=== PATIENT | female | born 1995 | race Caucasian/White ===

== ENCOUNTER 2017-12-05 10:14 | Emergency (ER) | payer OTHER, SELFPAY ==
[2017-12-05 10:19] VITALS: BP 141/90; PULSE 97; RESP 18; TEMP 36.8; O2SAT 99; BMI 27.4
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
[2017-12-05] MEDS: Naproxen 250 MG Tablet 500 MG PO (11:44)
[2017-12-05 11:55] VITALS: PULSE 95; RESP 17; O2SAT 99
== END 2017-12-05 11:58 | disposition home or self-care (01) ==
LOC: ED 10:51
PROVIDERS: Emergency Provider Emergency Medicine; Family Provider Family Medicine; PCP Family Medicine
DX: S16.1XXA Strain of muscle, fascia and tendon at neck level, initial encounter (principal); V49.40XA Driver injured in collision with unspecified motor vehicles in traffic accident, initial encounter; Y93.89 Activity, other specified
CPT/HCPCS: 99283

== ENCOUNTER → 2018-01-28 07:35 | Outpatient (CLI) | payer OTHER, SELFPAY ==
[2018-02-01 11:01] LABS: HPV Reflexed? NOT INDICATED
== END ==
PROVIDERS: Family Provider Family Medicine; PCP Family Medicine; Visit Provider Nurse Practitioner Women's Health
DX: Z12.4 Encounter for screening for malignant neoplasm of cervix (principal)
CPT/HCPCS: 88175; G0145

== ENCOUNTER → 2018-07-23 07:14 | Outpatient (CLI) | payer OTHER, SELFPAY ==
[2018-07-23 07:45] LABS: Erythrocyte Sedimentation Rate 12 mm/hr (0-20)
[2018-07-23 08:23] LABS: AST(SGOT) 12 U/L (15-37); Alanine Aminotransfer ALT/SGPT 20 U/L (13-56); Albumin, Serum 3.5 g/dL (3.2-5.0); Alkaline Phosphatase 111 U/L (45-117); Globulin 4.2 g/dL (2.2-4.2); Protein, Total 7.7 g/dL (6.4-8.2); Rheumatoid Factor < 10.0 IU/mL (<15)
[2018-07-29 09:38] LABS: CCP IgG Antibodies 7 units (0-19); HLA B27 Negative (.)
== END ==
PROVIDERS: Family Provider Family Medicine; PCP Family Medicine
DX: M54.2 Cervicalgia (principal); M25.519 Pain in unspecified shoulder
CPT/HCPCS: 36415; 80076; 81374; 85652; 86140; 86200; 86431

== ENCOUNTER → 2018-08-01 08:24 | Outpatient (CLI) | payer OTHER, SELFPAY ==
--- NOTE | 2018-08-01 08:28 | US_ITS ---
STUDY: ABDOMINAL ULTRASOUND - RIGHT UPPER QUADRANT REASON FOR VISIT: Female, 23 years old. Chronic back pain. TECHNIQUE: Ultrasound evaluation of the right upper quadrant was performed with real-time and static croft-scale imaging. TECHNICAL QUALITY: Adequate. COMPARISON: None. FINDINGS: Liver: The liver measures 15.3 cm. There is normal echogenicity of the liver. The bile ducts are within normal limits. There is hepatic color flow. The direction of portal flow is hepatopetal. There is no demonstrated mass lesion. Gallbladder: Normal distended gallbladder. The gallbladder wall measures 2.4 mm. There is a negative sonographic Angel's sign. There is no pericholecystic fluid. There is a 4 mm gallbladder polyp. Common Bile Duct (C.B.D.): The common bile duct measures 4.4 mm. Pancreas: Normal size of the head, body and tail of the pancreas. There is normal echogenicity of the pancreas. There is no demonstrated pancreatic mass or cyst. Right Kidney: Normal size of the right kidney. The right kidney measures 10.3 cm in length. Normal renal cortex. The right cortex measures 1.6 cm. There is no demonstrated renal mass or cyst. There is no right hydronephrosis. US/Gallbladder IMPRESSION: 4 mm gallbladder polyp. Electronically Signed: Bridget Vallecillo MD at 10:13 EST Tel , Service support ,
== END ==
PROVIDERS: Family Provider Family Medicine; PCP Family Medicine
DX: K81.9 Cholecystitis, unspecified (principal)
CPT/HCPCS: 76705

== ENCOUNTER → 2018-11-05 06:10 | Outpatient (CLI) | payer OTHER, SELFPAY ==
[2018-09-08 10:27] VITALS: BMI 26.5
[2018-11-05 07:23] LABS: Absolute Lymphocyte Count 3.19 X10^3/ul (0.83-4.51); Absolute Neutrophil Count 3.1 X10^3/uL (2.0-7.7); Eosinophil# 0.24 X10^3/uL; Eosinophils% 3.4 % (0-5); Hematocrit 42.4 % (37-47); Hemoglobin 13.9 g/dl (12.0-15.0); Lymphocyte # 3.19 X10^3/ul (4.0); Lymphocyte % 44.6 % (19-41); Mean Corp Hgb Conc 32.8 g/gl (32-36); Mean Corpuscular Volume 91.4 fL (81-99); Mean Platelet Vol. 10.9 fl (6.2-12.0); Monocyte# 0.63 X10^3/uL; Monocyte% 8.8 % (0-10); Neutrophil # 3.09 X10^3/uL (2.7-7.7); Neutrophil % 43.2 % (47-70); Platelet Count 275 K/mm3 (150-450); RBC Distribution Width CV 12.9 % (11.6-14.6); RBC Distribution Width SD 42.6 fl (35.1-43.9); Red Blood Count 4.64 M/mm3 (4.2-5.4); White Blood Count 7.2 K/mm3 (4.4-11.0)
[2018-11-05 07:25] LABS: AST(SGOT) 22 U/L (15-37); Alanine Aminotransfer ALT/SGPT 31 U/L (13-56); Albumin, Serum 3.7 g/dL (3.2-5.0); Alkaline Phosphatase 99 U/L (45-117); BUN 13 mg/dL (7-18); Bilirubin, Direct 0.27 mg/dL (0.00-0.30); Creatinine, Serum 0.79 mg/dL (0.55-1.02); EST Glomerular Filtration Rate 95 mL/min (>60); Est Glom Filt Rate - Afr Amer 115 mL/min (>60); Globulin 3.9 g/dL (2.2-4.2); Glucose 85 mg/dL (74-106); Protein, Total 7.6 g/dL (6.4-8.2); Rheumatoid Factor < 10.0 IU/mL (<15); Thyroid Stim Hormone (TSH) 1.88 uIU/mL (0.358-3.74); Uric Acid 5.2 mg/dL (2.6-6.0)
[2018-11-05 07:55] LABS: Erythrocyte Sedimentation Rate 11 mm/hr (0-20); POSITIVE COUNT NO; POSITIVE DIFFERENTIAL NO; POSITIVE MORPHOLOGY NO
[2018-11-05 08:22] LABS: Vitamin D,25 Hydroxy 14.2 ng/mL (29.95-100.01)
[2018-11-07 11:34] LABS: Thyroid Peroxidase AB 8 IU/mL (0-34)
[2018-11-07 12:43] LABS: ANTINUCLEAR ANTIBODIES DIRECT Negative (Negative)
== END ==
PROVIDERS: Family Provider Family Medicine; PCP Family Medicine; Referring Provider Specialist; Visit Provider Specialist
DX: L50.1 Idiopathic urticaria (principal); E07.9 Disorder of thyroid, unspecified; E55.9 Vitamin D deficiency, unspecified
CPT/HCPCS: 36415; 80076; 82306; 82565; 82947; 83520; 84443; 84520; 84550; 85025; 85652; 86038; 86376; 86431

== ENCOUNTER 2018-11-22 20:04 | Emergency (ER) | payer OTHER, SELFPAY ==
[2018-09-08 10:27] VITALS: BMI 26.5
[2018-11-22 20:05] VITALS: BP 146/77; PULSE 112; RESP 16; TEMP 36.8; O2SAT 100; BMI 27.3
--- NOTE | 2018-11-22 20:50 | ED.DCSUM_ITS ---
- ER Visit Summary Date of Service: 11/22/18 Chief Complaint: Upper lip swelling History of Present Illness: The patient is a 23 F sudden upper lip swelling started at 11 AM this morning, started in the right upper lip, at 3:30 PM progressed to the left upper lip. No tongue swelling no dyspnea. Took Benadryl with no relief. History of similar x2, most recent was September of this year. She follow-up with associate director of development Dr. Lee states was put on allergy pills and blood work was sent. She says is done here unknown results. No family history of hereditary angioedema. Reports stopping NSAIDs a few weeks ago. No ACEI or ARBs. Denies any different foods. She states she did not get seen in the ED for the other events. Records reviewed from September she had blood work apparently for rheumatological workups. There is no C1 esterase inhibitor sent. Physical Examination: General: Alert and oriented ?3, no acute distress HEENT: Normocephalic, atraumatic. Moist mucosa membranes. There is swelling of the upper lip bilaterally, no tongue swelling. Airway patent. No stridor. Neck: supple, nontender. Cardiovascular: Regular rate and rhythm, no murmurs Respiratory: Normal breath sounds, symmetric, no distress Abdomen: Soft, nontender, nondistended Extremities: Nontender, no edema, pulses intact ?4 Neuro: no focal neurological deficits. Test Results: C1 esterase inhibitor functional sent Emergency Department Course and Treatment: Patient vital signs stable, presents with angioedema with unclear etiology. After reviewing records and multiple episodes from history, C1 esterase inhibitor was sent for further evaluation. She will be monitored in the ED. multiple reevaluation's swelling was starting to improve. Unclear etiology at this point. She requests another associate director of development for follow-up. Recommendation was given. Treatment Plan: [] Disposition: Discharge Impression: Angioedema This note was generated with [employer] dictation software. It may contain incorrect words, spelling, and punctuation that were not noted in review of the chart prior to signing ED Disposition - Plan for ED Patient: Disposition: Home or Assisted Living Diagnosis: Angioedema of lips Instructions: ED Angioedema Referrals: Sage Olguin DO [Primary Care Provider] - Additional Instructions: Dr. Nelson Baker - ENT and allergy [address] [place] [address] [phone] c1 esterase inhibitor sent and pending
[2018-11-22 21:29] VITALS: BP 116/75; PULSE 90; RESP 15; O2SAT 95
[2018-11-26 16:39] LABS: C1 EST Inhibitor, Functional >109 (.)
== END 2018-11-22 21:41 | disposition home or self-care (01) ==
PROVIDERS: Emergency Provider Emergency Medicine; Family Provider Family Medicine; PCP Family Medicine
DX: T78.3XXA Angioneurotic edema, initial encounter (principal)
CPT/HCPCS: 36415; 86161; 99282

== ENCOUNTER → 2019-01-12 13:56 | Outpatient (CLI) | payer OTHER, SELFPAY ==
[2018-12-30 12:27] VITALS: BMI 27.3
[2019-01-12 14:10] VITALS: BP 139/79; PULSE 103; RESP 18; TEMP 37.8; O2SAT 100; BMI 26.6
[2019-01-12 16:06] VITALS: BP 123/74; PULSE 100; RESP 18; TEMP 37.1; O2SAT 100
== END ==
PROVIDERS: Family Provider Family Medicine; PCP Family Medicine
DX: L50.1 Idiopathic urticaria (principal)
CPT/HCPCS: 96372; J2357

== ENCOUNTER → 2019-02-13 13:48 | Outpatient (CLI) | payer OTHER, SELFPAY ==
[2019-01-12 14:10] VITALS: BMI 26.6
[2019-02-13 14:11] VITALS: BP 118/70; PULSE 118; RESP 18; TEMP 37.2; O2SAT 98; BMI 26.6
== END ==
PROVIDERS: Family Provider Family Medicine; PCP Family Medicine
DX: L50.1 Idiopathic urticaria (principal)
CPT/HCPCS: 96372; J2357

== ENCOUNTER → 2019-03-16 15:33 | Outpatient (CLI) | payer OTHER, SELFPAY ==
[2019-02-13 14:11] VITALS: BMI 26.6
[2019-03-16 15:38] VITALS: BP 137/72; PULSE 114; RESP 18; TEMP 36.9; O2SAT 98; BMI 26.6
== END ==
PROVIDERS: Family Provider Family Medicine; PCP Family Medicine
DX: L50.1 Idiopathic urticaria (principal)
CPT/HCPCS: 96372; J2357

== ENCOUNTER → 2019-04-04 08:42 | Outpatient (CLI) | payer OTHER, SELFPAY ==
[2019-03-16 15:38] VITALS: BMI 26.6
== END ==
PROVIDERS: Family Provider Family Medicine; PCP Family Medicine
DX: Z00.00 Encounter for general adult medical examination without abnormal findings (principal)
CPT/HCPCS: 36415

== ENCOUNTER → 2019-04-13 15:20 | Outpatient (CLI) | payer OTHER, SELFPAY ==
[2019-03-16 15:38] VITALS: BMI 26.6
[2019-04-13 15:37] VITALS: BP 123/70; PULSE 111; RESP 16; TEMP 36.8; O2SAT 97; BMI 26.6
== END ==
PROVIDERS: Family Provider Family Medicine; PCP Family Medicine; Referring Provider Allergy & Immunology; Visit Provider Allergy & Immunology
DX: L50.1 Idiopathic urticaria (principal)
CPT/HCPCS: 96372; J2357

== ENCOUNTER → 2019-05-12 15:26 | Outpatient (CLI) | payer OTHER, SELFPAY ==
[2019-04-13 15:37] VITALS: BMI 26.6
[2019-05-12 15:48] VITALS: BP 144/74; PULSE 99; RESP 16; TEMP 36.5; O2SAT 100; BMI 27.4
== END ==
PROVIDERS: Family Provider Family Medicine; PCP Family Medicine; Referring Provider Allergy & Immunology; Visit Provider Allergy & Immunology
DX: L50.1 Idiopathic urticaria (principal)
CPT/HCPCS: 96372; J2357

== ENCOUNTER → 2019-06-05 15:08 | Outpatient (CLI) | payer OTHER, SELFPAY ==
[2019-05-12 15:48] VITALS: BMI 27.4
[2019-06-05 15:19] VITALS: BP 117/60; PULSE 97; RESP 16; O2SAT 98; BMI 27.1
== END ==
PROVIDERS: Family Provider Family Medicine; PCP Family Medicine; Referring Provider Allergy & Immunology; Visit Provider Allergy & Immunology
DX: L50.1 Idiopathic urticaria (principal)
CPT/HCPCS: 96372; J2357

== ENCOUNTER → 2019-07-01 14:43 | Outpatient (CLI) | payer OTHER, SELFPAY ==
[2019-06-05 15:19] VITALS: BMI 27.1
[2019-07-01 15:04] VITALS: BP 114/66; PULSE 89; RESP 18; TEMP 37.3; O2SAT 100; BMI 26.9
== END ==
PROVIDERS: Family Provider Family Medicine; PCP Family Medicine; Referring Provider Allergy & Immunology; Visit Provider Allergy & Immunology
DX: L50.1 Idiopathic urticaria (principal)
CPT/HCPCS: 96372; J2357

== ENCOUNTER → 2019-07-31 15:26 | Outpatient (CLI) | payer OTHER, SELFPAY ==
[2019-06-05 15:19] VITALS: BMI 27.1
[2019-07-01 15:04] VITALS: BMI 26.9
[2019-07-31 15:29] VITALS: BP 129/71; PULSE 97; RESP 18; TEMP 36.9; O2SAT 100; BMI 27.4
[2019-07-31 16:07] VITALS: BP 113/61; PULSE 101; RESP 16; O2SAT 98
== END ==
PROVIDERS: Family Provider Family Medicine; PCP Family Medicine; Visit Provider Allergy & Immunology
DX: L50.1 Idiopathic urticaria (principal)
CPT/HCPCS: 96372; J2357

== ENCOUNTER → 2019-08-28 15:33 | Outpatient (CLI) | payer OTHER, SELFPAY ==
[2019-07-31 15:29] VITALS: BMI 27.4
[2019-08-28 15:42] VITALS: BP 116/78; PULSE 94; RESP 16; TEMP 36.3; BMI 28.3
[2019-08-28 16:17] VITALS: BP 121/79; PULSE 86; RESP 18; TEMP 36.4; O2SAT 100
== END ==
PROVIDERS: Family Provider Family Medicine; PCP Family Medicine; Referring Provider Allergy & Immunology; Visit Provider Allergy & Immunology
DX: L50.1 Idiopathic urticaria (principal)
CPT/HCPCS: 96372; J2357

== ENCOUNTER → 2019-09-25 15:32 | Outpatient (CLI) | payer OTHER, SELFPAY ==
[2019-08-28 15:42] VITALS: BMI 28.3
[2019-09-25 15:36] VITALS: BP 118/63; PULSE 94; RESP 18; TEMP 37; O2SAT 99; BMI 28.3
[2019-09-25 16:13] VITALS: BP 117/71; PULSE 92; RESP 16
== END ==
PROVIDERS: Family Provider Family Medicine; PCP Family Medicine; Referring Provider Allergy & Immunology; Visit Provider Allergy & Immunology
DX: L50.1 Idiopathic urticaria (principal)
CPT/HCPCS: 96372; J2357

== ENCOUNTER → 2019-10-23 15:19 | Outpatient (CLI) | payer OTHER, SELFPAY ==
[2019-09-25 15:36] VITALS: BMI 28.3
[2019-10-23 15:26] VITALS: BP 133/65; PULSE 95; RESP 16; TEMP 36.4; O2SAT 99; BMI 27.9
[2019-10-23 16:02] VITALS: BP 118/59; PULSE 75; RESP 16
== END ==
PROVIDERS: Family Provider Family Medicine; PCP Family Medicine; Referring Provider Allergy & Immunology; Visit Provider Allergy & Immunology
DX: L50.1 Idiopathic urticaria (principal)
CPT/HCPCS: 96372

== ENCOUNTER → 2019-10-30 16:13 | Outpatient (CLI) | payer OTHER, SELFPAY ==
[2019-10-23 15:26] VITALS: BMI 27.9
[2019-10-30 17:15] LABS: Absolute Lymphocyte Count 2.86 X10^3/uL (0.83-4.51); Absolute Neutrophil Count 3.8 X10^3/uL (2.0-7.7); Basophil# 0.01 X10^3/uL; Basophil% 0.1 % (0-1); Eosinophil# 0.16 X10^3/uL; Eosinophils% 2.1 % (0-5); Hematocrit 41.3 % (37-47); Hemoglobin 13.3 g/dL (12.0-15.0); Lymphocyte # 2.86 X10^3/ul (4.0); Mean Corp Hgb Conc 32.2 g/dL (32-36); Mean Corpuscular Hgb 28.6 pg (27.0-32.0); Mean Corpuscular Volume 88.8 fL (81-99); Mean Platelet Vol. 11.1 fl (6.2-12.0); Monocyte# 0.65 X10^3/uL; Monocyte% 8.6 % (0-10); NRBC Flagged by Analyzer 0 % (0-5); Neutrophil # 3.84 X10^3/uL (2.7-7.7); Neutrophil % 51.1 % (47-70); Platelet Count 335 K/mm3 (150-450); RBC Distribution Width CV 12.5 % (11.6-14.6); RBC Distribution Width SD 40.9 fl (35.1-43.9); Red Blood Count 4.65 M/mm3 (4.2-5.4); White Blood Count 7.5 K/mm3 (4.4-11.0)
[2019-10-30 18:06] LABS: Vitamin D,25 Hydroxy 47.7 ng/mL (29.95-100.01)
[2019-10-30 18:11] LABS: Ferritin 41 ng/mL (8-252); Free T3 2.9 pg/mL (2.18-3.98); Iron 80 ug/dL (50-170); Iron Binding Capacity,Total 473 ug/dL (250-450); PERCENT IRON SATURATION 16.9 % (15.0-55.0); T4 Free Direct 1.15 ng/dL (0.76-1.46); Thyroid Stim Hormone (TSH) 0.82 uIU/mL (0.358-3.74)
[2019-11-02 16:07] LABS: PROEL- A/G Ratio 1.1 (0.7-1.7); PROEL- Albumin 3.7 g/dL (2.9-4.4); PROEL- Alpha-1 Globulin 0.3 g/dL (0.0-0.4); PROEL- Beta Globulin 1.2 g/dL (0.7-1.3); PROEL- Gamma Globulin 0.8 g/dL (0.4-1.8); PROEL- Globulin, Total 3.3 g/dL (2.2-3.9)
[2019-11-02 17:41] LABS: Anti-Thyroglobulin AB < 1.0 IU/mL (0.0-0.9); Thyroglobulin, Serum Qt. 7.4 ng/mL (1.5-38.5)
== END ==
PROVIDERS: PCP Family Medicine; Referring Provider Specialist; Visit Provider Specialist
DX: E55.9 Vitamin D deficiency, unspecified (principal); E61.1 Iron deficiency; E04.9 Nontoxic goiter, unspecified
CPT/HCPCS: 36415; 82306; 82728; 83540; 83550; 84165; 84432; 84439; 84443; 84481; 85025; 86800

== ENCOUNTER → 2019-11-20 15:20 | Outpatient (CLI) | payer OTHER, SELFPAY ==
[2019-09-25 15:36] VITALS: BMI 28.3
[2019-10-23 15:26] VITALS: BMI 27.9
[2019-11-20] MEDS: Omalizumab 150 MG/ML Syringe SQ ×2 (15:25→15:29)
[2019-11-20 15:31] VITALS: BP 108/61; PULSE 87; RESP 16; TEMP 36.8; BMI 27.9
== END ==
PROVIDERS: PCP Family Medicine; Referring Provider Allergy & Immunology; Visit Provider Allergy & Immunology
DX: L50.1 Idiopathic urticaria (principal)
CPT/HCPCS: 96372; J2357

== ENCOUNTER → 2019-12-18 11:30 | Outpatient (CLI) | payer OTHER, SELFPAY ==
[2019-11-20 15:31] VITALS: BMI 27.9
[2019-12-18 12:00] VITALS: BP 104/68; PULSE 86; RESP 16; TEMP 36.7; BMI 28.3
[2019-12-18] MEDS: Omalizumab 150 MG/ML Syringe SQ ×2 (12:06)
[2019-12-18 12:44] VITALS: BP 95/56; PULSE 74
== END ==
PROVIDERS: PCP Family Medicine; Referring Provider Allergy & Immunology; Visit Provider Allergy & Immunology
DX: L50.1 Idiopathic urticaria (principal)
CPT/HCPCS: 96372; J2357

== ENCOUNTER → 2020-01-15 15:36 | Outpatient (CLI) | payer OTHER, SELFPAY ==
[2019-10-23 15:26] VITALS: BMI 27.9
[2019-12-18 12:00] VITALS: BMI 28.3
[2020-01-15] MEDS: Omalizumab 150 MG/ML Syringe SQ ×2 (15:43)
[2020-01-15 15:47] VITALS: BP 114/64; PULSE 79; RESP 16; TEMP 36.6; BMI 28.3
== END ==
PROVIDERS: PCP Family Medicine; Referring Provider Allergy & Immunology; Visit Provider Allergy & Immunology
DX: L50.1 Idiopathic urticaria (principal)
CPT/HCPCS: 96372; J2357

== ENCOUNTER → 2020-01-23 10:15 | Outpatient (CLI) | payer OTHER, SELFPAY ==
[2020-01-15 15:47] VITALS: BMI 28.3
[2020-01-26 16:08] LABS: Almond <0.10 kU/L (Class 0); Beef <0.10 kU/L (Class 0); Chicken <0.10 kU/L (Class 0); Egg, Whole <0.10 kU/L (Class 0)
[2020-01-26 21:28] LABS: Corn <0.10 kU/L (Class 0); Yeast <0.10 kU/L (Class 0)
== END ==
PROVIDERS: PCP Family Medicine; Referring Provider Specialist; Visit Provider Specialist
DX: L50.1 Idiopathic urticaria (principal); J30.5 Allergic rhinitis due to food
CPT/HCPCS: 36415; 82785; 86003

== ENCOUNTER → 2020-02-12 15:24 | Outpatient (CLI) | payer OTHER, SELFPAY ==
[2019-10-23 15:26] VITALS: BMI 27.9
[2020-01-15 15:47] VITALS: BMI 28.3
[2020-02-12] MEDS: Omalizumab 150 MG/ML Syringe SQ ×2 (15:31)
[2020-02-12 15:36] VITALS: BP 112/65; PULSE 101; RESP 16; TEMP 36.6; BMI 28.3
== END ==
PROVIDERS: PCP Family Medicine; Referring Provider Allergy & Immunology; Visit Provider Allergy & Immunology
DX: L50.1 Idiopathic urticaria (principal)
CPT/HCPCS: 96372; J2357

== ENCOUNTER → 2020-03-16 12:46 | Outpatient (CLI) | payer OTHER, SELFPAY ==
[2020-02-12 15:36] VITALS: BMI 28.3
[2020-03-16 12:56] VITALS: BP 123/71; PULSE 95; RESP 16; TEMP 36.8; O2SAT 100; BMI 28.3
[2020-03-16] MEDS: Omalizumab 150 MG/ML Syringe SQ ×2 (13:05)
== END ==
PROVIDERS: PCP Family Medicine; Referring Provider Allergy & Immunology; Visit Provider Allergy & Immunology
DX: L50.1 Idiopathic urticaria (principal)
CPT/HCPCS: 96372; J2357

== ENCOUNTER → 2020-04-15 15:25 | Outpatient (CLI) | payer OTHER, SELFPAY ==
[2020-02-12 15:36] VITALS: BMI 28.3
[2020-03-16 12:56] VITALS: BMI 28.3
[2020-04-15 15:43] VITALS: BP 108/58; PULSE 91; RESP 16; TEMP 36.6; O2SAT 99; BMI 28.3
[2020-04-15] MEDS: Omalizumab 150 MG/ML Syringe SQ ×2 (15:58→16:02)
== END ==
PROVIDERS: PCP Family Medicine; Referring Provider Allergy & Immunology; Visit Provider Allergy & Immunology
DX: L50.1 Idiopathic urticaria (principal)
CPT/HCPCS: 96372; J2357

== ENCOUNTER → 2020-05-13 15:26 | Outpatient (CLI) | payer OTHER, SELFPAY ==
[2020-03-16 12:56] VITALS: BMI 28.3
[2020-04-15 15:43] VITALS: BMI 28.3
[2020-05-13 15:32] VITALS: BP 106/55; PULSE 93; RESP 16; TEMP 36.2; O2SAT 97; BMI 28.5
[2020-05-13] MEDS: Omalizumab 150 MG/ML Syringe SQ ×2 (15:39)
== END ==
PROVIDERS: PCP Family Medicine; Referring Provider Allergy & Immunology; Visit Provider Allergy & Immunology
DX: L50.1 Idiopathic urticaria (principal)
CPT/HCPCS: 96372; J2357

== ENCOUNTER → 2020-06-10 15:17 | Outpatient (CLI) | payer OTHER, SELFPAY ==
[2020-04-15 15:43] VITALS: BMI 28.3
[2020-05-13 15:32] VITALS: BMI 28.5
[2020-06-10 15:22] VITALS: BP 120/69; PULSE 95; RESP 16; TEMP 36.9; O2SAT 100; BMI 28.6
[2020-06-10] MEDS: Omalizumab 150 MG/ML Syringe SQ ×2 (15:26)
[2020-06-10 16:06] VITALS: BP 121/70
== END ==
PROVIDERS: PCP Family Medicine; Referring Provider Allergy & Immunology; Visit Provider Allergy & Immunology
DX: L50.1 Idiopathic urticaria (principal)
CPT/HCPCS: 96372; J2357

== ENCOUNTER → 2020-07-14 13:03 | Outpatient (CLI) | payer OTHER, SELFPAY ==
[2020-05-13 15:32] VITALS: BMI 28.5
[2020-06-10 15:22] VITALS: BMI 28.6
[2020-07-14 13:20] VITALS: BP 115/69; PULSE 93; RESP 16; TEMP 36.5; BMI 29.2
[2020-07-14] MEDS: Omalizumab 150 MG/ML Syringe SQ ×2 (13:31→13:32)
== END ==
PROVIDERS: PCP Family Medicine; Referring Provider Allergy & Immunology; Visit Provider Allergy & Immunology
DX: L50.1 Idiopathic urticaria (principal)
CPT/HCPCS: 96372; J2357

== ENCOUNTER → 2020-08-12 15:22 | Outpatient (CLI) | payer OTHER, SELFPAY ==
[2020-06-10 15:22] VITALS: BMI 28.6
[2020-07-14 13:20] VITALS: BMI 29.2
[2020-08-12] MEDS: Omalizumab 150 MG/ML Syringe SQ ×2 (15:31)
[2020-08-12 15:35] VITALS: BP 128/72; PULSE 95; RESP 16; TEMP 36.3; O2SAT 100; BMI 29.2
[2020-08-12 16:10] VITALS: BP 127/67; PULSE 78
== END ==
PROVIDERS: PCP Family Medicine; Referring Provider Allergy & Immunology; Visit Provider Allergy & Immunology
DX: L50.1 Idiopathic urticaria (principal)
CPT/HCPCS: 96372; J2357

== ENCOUNTER → 2020-09-15 10:12 | Outpatient (CLI) | payer OTHER, SELFPAY ==
[2020-08-12 15:35] VITALS: BMI 29.2
[2020-09-15 10:24] VITALS: BP 110/68; PULSE 103; RESP 16; TEMP 35.7; O2SAT 97; BMI 30.9
[2020-09-15] MEDS: Omalizumab 150 MG/ML Syringe SQ ×2 (10:31→10:32)
== END ==
PROVIDERS: PCP Family Medicine; Referring Provider Allergy & Immunology; Visit Provider Allergy & Immunology
DX: L50.1 Idiopathic urticaria (principal)
CPT/HCPCS: 96372; J2357

== ENCOUNTER → 2020-10-14 13:00 | Outpatient (CLI) | payer OTHER, SELFPAY ==
[2020-08-12 15:35] VITALS: BMI 29.2
[2020-09-15 10:24] VITALS: BMI 30.9
[2020-10-14 13:15] VITALS: BP 116/63; PULSE 96; RESP 16; TEMP 37.2; O2SAT 97; BMI 30.9
[2020-10-14] MEDS: Omalizumab 150 MG/ML Syringe SQ ×2 (13:25)
[2020-10-14 14:00] VITALS: BP 128/67; PULSE 68
== END ==
PROVIDERS: PCP Family Medicine; Referring Provider Allergy & Immunology; Visit Provider Allergy & Immunology
DX: L50.1 Idiopathic urticaria (principal)
CPT/HCPCS: 96372; J2357

== ENCOUNTER 2020-11-11 10:23 | Outpatient (CLI) | payer OTHER, SELFPAY ==
[2020-09-15 10:24] VITALS: BMI 30.9
[2020-10-14 13:15] VITALS: BMI 30.9
[2020-11-11 10:30] VITALS: BP 109/69; PULSE 71; RESP 16; TEMP 37.2; O2SAT 100; BMI 31.7
[2020-11-11] MEDS: Omalizumab 150 MG/ML Syringe 300 MG SQ (10:35)
== END 2020-11-11 11:36 | disposition home or self-care (01) ==
LOC: MEDOUTP 10:24
PROVIDERS: PCP Family Medicine; Referring Provider Allergy & Immunology; Visit Provider Allergy & Immunology
DX: L50.1 Idiopathic urticaria (principal)
CPT/HCPCS: 96372; J2357

== ENCOUNTER → 2020-12-09 10:31 | Outpatient (CLI) | payer OTHER, SELFPAY ==
[2020-10-14 13:15] VITALS: BMI 30.9
[2020-11-11 10:30] VITALS: BMI 31.7
[2020-12-09 10:35] VITALS: BP 150/85; PULSE 84; RESP 16; TEMP 35.9; O2SAT 97; BMI 31.7
[2020-12-09] MEDS: Omalizumab 150 MG/ML Syringe 300 MG SQ (10:37)
[2020-12-09 11:54] LABS: AST(SGOT) 14 U/L (15-37); Alanine Aminotransfer ALT/SGPT 29 U/L (13-56); Albumin, Serum 3.8 g/dL (3.2-5.0); Alkaline Phosphatase 191 U/L (45-117); Bilirubin, Direct 0.17 mg/dL (0.00-0.30); Globulin 3.8 g/dL (2.2-4.2); Protein, Total 7.6 g/dL (6.4-8.2)
== END ==
PROVIDERS: PCP Family Medicine; Referring Provider Allergy & Immunology; Visit Provider Allergy & Immunology
DX: L50.1 Idiopathic urticaria (principal)
CPT/HCPCS: 36415; 80076; 96372; J2357

== ENCOUNTER → 2021-01-06 08:57 | Outpatient (CLI) | payer OTHER, SELFPAY ==
[2020-12-09 10:35] VITALS: BMI 31.7
[2021-01-06 09:08] VITALS: BP 114/67; PULSE 90; RESP 16; TEMP 36.1; O2SAT 96; BMI 29.7
[2021-01-06] MEDS: Omalizumab 150 MG/ML Syringe 300 MG SQ (09:09)
== END ==
PROVIDERS: PCP Family Medicine; Referring Provider Allergy & Immunology; Visit Provider Allergy & Immunology
DX: L50.1 Idiopathic urticaria (principal)
CPT/HCPCS: 96372; J2357

== ENCOUNTER → 2021-01-18 13:28 | Outpatient (CLI) | payer OTHER, SELFPAY ==
[2021-01-06 09:08] VITALS: BMI 29.7
[2021-01-18 14:38] LABS: AST(SGOT) 11 U/L (15-37); Alanine Aminotransfer ALT/SGPT 22 U/L (13-56); Albumin, Serum 3.5 g/dL (3.2-5.0); Alkaline Phosphatase 131 U/L (45-117); Bilirubin, Direct 0.17 mg/dL (0.00-0.30); Globulin 3.4 g/dL (2.2-4.2); Protein, Total 6.9 g/dL (6.4-8.2)
== END ==
PROVIDERS: PCP Family Medicine; Referring Provider Podiatrist; Visit Provider Podiatrist
DX: Z51.81 Encounter for therapeutic drug level monitoring (principal)
CPT/HCPCS: 36415; 80076

== ENCOUNTER → 2021-01-18 13:55 | Outpatient (CLI) | payer OTHER, SELFPAY ==
[2021-01-06 09:08] VITALS: BMI 29.7
== END ==
PROVIDERS: PCP Family Medicine; Referring Provider Nurse Practitioner Adult Health; Visit Provider Nurse Practitioner Adult Health
DX: Z03.818 Encounter for observation for suspected exposure to other biological agents ruled out (principal)
CPT/HCPCS: 87635; C9803; U0002

== ENCOUNTER → 2021-02-21 16:55 | Outpatient (CLI) | payer OTHER, SELFPAY ==
[2021-01-06 09:08] VITALS: BMI 29.7
== END ==
PROVIDERS: PCP Family Medicine; Referring Provider Urology; Visit Provider Urology
DX: N20.1 Calculus of ureter (principal)
CPT/HCPCS: 87086; 87088

== ENCOUNTER → 2021-03-08 07:29 | Outpatient (CLI) | payer OTHER, SELFPAY ==
[2021-01-06 09:08] VITALS: BMI 29.7
--- NOTE | 2021-03-08 07:30 | CT_ITS ---
STUDY: CT ABDOMEN AND PELVIS WITHOUT CONTRAST REASON FOR EXAM: Female, 25 years old. Back pain. History of kidney stones. RADIATION DOSAGE (If Supplied By Facility): CTDIvol = ( 7.54 ) mGy, DLP = ( 350.14 ) mGycm TECHNIQUE: Transaxial images were obtained from the dome of the diaphragm to the symphysis pubis without oral contrast, and without intravenous contrast. Sagittal and coronal images were reconstructed. Individualized dose optimization techniques were used for this CT. COMPARISON: None. FINDINGS: Evaluation of the abdominal viscera is limited in the absence of intravenous contrast. The visualized lung bases are clear. The visualized portions of the heart and pericardium are within normal limits. There are no calcified gallstones present. The liver demonstrates an unremarkable unenhanced appearance. The spleen is normal in size. The pancreas demonstrates an unremarkable unenhanced appearance. The adrenal glands are within normal limits. There is a 1 mm nonobstructing right renal stone. There are additional no renal or ureteral stones. There is no hydronephrosis. Normal visualized stomach. There is no bowel obstruction or inflammation. There is a large amount of stool in the colon, consistent with constipation. The appendix is visualized and appears normal. The aorta is normal in caliber. There is no abdominal or pelvic free air, free fluid, fluid collection or lymphadenopathy. There are no destructive osseous lesions. CT/Abdomen/Pelvis without Cont IMPRESSION: 1 mm nonobstructing right renal stone. No additional urinary calculi. No hydronephrosis. No bowel obstruction or inflammation. Normal appendix. Constipation. Electronically Signed: Danny Hernandez MD at 8:03 EDT Tel , Service support ,
== END ==
PROVIDERS: PCP Family Medicine; Referring Provider Urology; Visit Provider Urology
DX: N20.0 Calculus of kidney (principal); M54.5 Low back pain
CPT/HCPCS: 74176

== ENCOUNTER → 2022-09-26 | Outpatient (CLI) | payer OTHER, SELFPAY ==
[2022-10-02 14:11] LABS: HPV Reflexed? NOT INDICATED
== END | disposition home or self-care (01) ==
LOC: LABSPEC 14:56
PROVIDERS: PCP Family Medicine; Referring Provider Nurse Practitioner Women's Health; Visit Provider Nurse Practitioner Women's Health
DX: Z12.4 Encounter for screening for malignant neoplasm of cervix (principal)
CPT/HCPCS: 88175; G0145

== ENCOUNTER → 2022-10-09 | Outpatient (CLI) | payer OTHER, SELFPAY ==
--- NOTE | 2022-10-09 14:32 | US_ITS ---
STUDY: ULTRASOUND BREAST - LEFT REASON FOR EXAM: Female, 27 years old. Left breast pain. TECHNIQUE: Axial and longitudinal images of the LEFT breast were performed with a high resolution ultrasound transducer. # OF IMAGES: 19 COMPARISON: Comparison is made with prior mammogram done earlier today. FINDINGS: LEFT Breast: The upper outer quadrant of the left breast was examined with ultrasound. Dense fibroglandular tissue. No sonographic abnormality is seen. US/Breast Limited Unilateral IMPRESSION: No sonographic abnormality is seen. ASSESSMENT CATEGORY: BIRADS Category 1: Negative. A letter regarding these results will be sent to the patient by the facility within 30 days. Electronically Signed: Raghavendra Champion MD at 8:49 EST ,
--- NOTE | 2022-10-09 14:43 | BI_ITS ---
MAMMOGRAPHY - BILATERAL DIAGNOSTIC REASON FOR EXAM: Female, 27 years old. Six-month history of breast pain in the upper outer quadrant of the left breast. PERTINENT HISTORY: Non-contributory. TECHNIQUE: Digital bilateral breast patricia (3D mammographic acquisition) in the CC and MLO projections. 2-D mediolateral oblique (MLO) and craniocaudad (CC) views of both breasts were obtained. CAD: Full Field Digital Mammography with Computer Added Detection was performed. COMPARISON: None. Baseline examination. FINDINGS: Breast Composition: The breasts are extremely dense, which lowers the sensitivity of mammography. There are no dominant masses or suspicious calcifications. Benign appearing bilateral axillary lymph nodes. No other significant abnormalities are identified. BI/DIAG MAMM W/CAD, BILAT IMPRESSION: Negative diagnostic mammogram. With the patient''s history of breast pain in the upper-outer quadrant of the left breast, targeted ultrasound is recommended. ASSESSMENT CATEGORY: BIRADS Category 0: Incomplete. Need additional imaging evaluation. A letter regarding these results will be sent to the patient by the facility within 30 days. Approximately 10% of breast cancers are not detected by mammography. A normal mammogram should not delay biopsy of a clinically suspicious abnormality. Electronically Signed: Raghavendra Champion MD at 15:25 EST ,
== END | disposition home or self-care (01) ==
LOC: OPBI 14:29
PROVIDERS: PCP Family Medicine; Referring Provider Nurse Practitioner Women's Health; Visit Provider Nurse Practitioner Women's Health
DX: N64.4 Mastodynia (principal)
CPT/HCPCS: 76642; 77062; 77066; G0279

== ENCOUNTER → 2022-11-26 | Outpatient (CLI) | payer OTHER, SELFPAY ==
[2022-11-26 09:48] LABS: Color, Urine Yellow (Yellow); Glucose, Dipstick Normal (Normal); Ketone-Dipstick Negative (Negative); Leukocyte Esterase-Dipstick 25 /ul (Negative); Nitrite-Dipstick Negative (Negative); Occult Blood-Urine 25 /ul (Negative); Protein-Dipstick 30 mg/dl (Negative); Specific Gravity, Urine 1.025 (1.002-1.030); Urine Bilirubin Dipstick Negative (Negative); Urine Clarity Sl. Cloudy (Clear); Urine Urobilinogen Normal (Normal)
[2022-11-26 10:07] LABS: Bacteria 1+ /hpf (None Seen); Mucous, Urine 2+ /hpf (<or=2+); Red Blood Cells-Urine 0-5 SEEN /hpf (0-5); Squamous Epithelial Cells - UA 5-10 SEEN /hpf (5-10); White Blood Cells 0-5 SEEN /hpf (0-5)
== END | disposition home or self-care (01) ==
LOC: LABSPEC 09:38
PROVIDERS: PCP Family Medicine; Referring Provider Physician Assistant; Visit Provider Physician Assistant
DX: R39.9 Unspecified symptoms and signs involving the genitourinary system (principal)
CPT/HCPCS: 81001; 87086; 87088

== ENCOUNTER → 2023-12-17 | Outpatient (CLI) | payer BC, SELFPAY ==
[2023-12-17 18:07] LABS: Vitamin D,25 Hydroxy 48.7 ng/mL
[2023-12-17 18:13] LABS: Thyroid Stim Hormone (TSH) 1.15 uIU/mL (0.358-3.74)
== END | disposition home or self-care (01) ==
LOC: MTLAB 15:31
PROVIDERS: PCP Family Medicine; Referring Provider Specialist; Visit Provider Specialist
DX: E55.9 Vitamin D deficiency, unspecified (principal); E04.9 Nontoxic goiter, unspecified
CPT/HCPCS: 36415; 82306; 84443

== ENCOUNTER → 2024-01-15 | Outpatient (CLI) | payer BC, SELFPAY ==
[2024-01-17 15:08] LABS: Thyroglobulin Antibody < 1.0 IU/mL (0.0-0.9); Thyroid Peroxidase AB < 9 IU/mL (0-34)
== END | disposition home or self-care (01) ==
LOC: BIMLAB 15:50
PROVIDERS: PCP Family Medicine; Visit Provider Specialist
DX: E04.9 Nontoxic goiter, unspecified (principal)
CPT/HCPCS: 36415; 86376; 86800

== ENCOUNTER → 2024-03-10 | Outpatient (CLI) | payer BC, SELFPAY ==
[2024-03-10 15:39] LABS: Free T3 2.9 pg/mL (2.18-3.98); T4 Free Direct 1.13 ng/dL (0.76-1.46); Thyroid Stim Hormone (TSH) 0.75 uIU/mL (0.358-3.74)
== END | disposition home or self-care (01) ==
LOC: BIMLAB 12:13
PROVIDERS: PCP Family Medicine; Visit Provider Specialist
DX: E03.9 Hypothyroidism, unspecified (principal)
CPT/HCPCS: 36415; 84439; 84443; 84481

== ENCOUNTER → 2024-05-13 | Outpatient (CLI) | payer BC, SELFPAY ==
--- NOTE | 2024-05-13 11:22 | US_ITS ---
EXAM: US , TRANSVAGINAL CLINICAL INDICATION: viability TECHNIQUE: Real-time endovaginal obstetrical ultrasound of the maternal pelvis and a first trimester with image documentation. Transvaginal imaging was used for better evaluation of the fetus and adnexa. COMPARISON: No relevant prior studies available. FINDINGS: GESTATION: Intrauterine gestational sac noted containing a 4 mm embryo. Cardiac activity within the embryo with a rate of 110 bpm. Normal 4 mm yolk sac. No perigestational hemorrhage. PLACENTA/AMNIOTIC FLUID: Cannot be adequately evaluated due to the early gestational age. UTERUS/CERVIX: Normal. Anteverted. No uterine mass. OVARIES: 2.5 cm right ovarian corpus luteum. No mass. The right ovary measures 4.2 x 2.8 x 3.1 cm. The left ovary measures 1.9 x 1.7 x 1.2 cm. FREE FLUID: No free fluid. US/Transvaginal w/Preg US IMPRESSION: Single live 6 week 2 day intrauterine gestation by crown-rump measurement. Ultrasound and clinical AI January 04, 2025. Electronically Signed: Yonathan Aguirre MD at 14:03 EDT ,
[2024-05-13 14:05] LABS: hCG Titer Quant., Serum 29609 mIU/mL (1-3)
== END | disposition home or self-care (01) ==
LOC: US 11:20
PROVIDERS: PCP Family Medicine; Referring Provider Obstetrics & Gynecology; Visit Provider Obstetrics & Gynecology
DX: O20.9 Hemorrhage in early pregnancy, unspecified (principal); Z3A.00 Weeks of gestation of pregnancy not specified
CPT/HCPCS: 36415; 76817; 84702

== ENCOUNTER → 2024-05-15 | Outpatient (CLI) | payer BC, SELFPAY ==
[2024-05-15 13:24] LABS: hCG Titer Quant., Serum 41921 mIU/mL (1-3)
== END | disposition home or self-care (01) ==
LOC: BIMLAB 11:25
PROVIDERS: Obstetrics & Gynecology; PCP Family Medicine; Visit Provider Family Medicine
DX: O20.9 Hemorrhage in early pregnancy, unspecified (principal); Z3A.00 Weeks of gestation of pregnancy not specified
CPT/HCPCS: 36415; 84702

== ENCOUNTER → 2024-06-04 | Outpatient (CLI) | payer BC, SELFPAY ==
[2024-06-04 12:56] LABS: Absolute Lymphocyte Count 2.14 X10^3/uL (0.83-4.51); Absolute Neutrophil Count 8.2 X10^3/uL (2.0-7.7); Basophil# 0.01 X10^3/uL; Basophil% 0.1 % (0-1); Eosinophils% 0.9 % (0-5); Hematocrit 37.4 % (37-47); Hemoglobin 12.2 g/dL (12.0-15.0); Lymphocyte # 2.14 X10^3/ul (0.83-4.51); Lymphocyte % 18.9 % (19-41); Mean Corp Hgb Conc 32.6 g/dL (32-36); Mean Corpuscular Hgb 29.8 pg (27.0-32.0); Mean Corpuscular Volume 91.2 fL (81-99); Mean Platelet Vol. 10.7 fl (6.2-12.0); Monocyte# 0.85 X10^3/uL; Monocyte% 7.5 % (0-10); NRBC Flagged by Analyzer 0 % (0-5); Neutrophil # 8.18 X10^3/uL (2.7-7.7); Neutrophil % 72.2 % (47-70); Platelet Count 330 K/mm3 (150-450); RBC Distribution Width CV 12.5 % (11.6-14.6); RBC Distribution Width SD 41.4 fl (35.1-43.9); White Blood Count 11.3 K/mm3 (4.4-11.0)
[2024-06-04 13:38] LABS: Hemoglobin A1c 4.9 % (3.8-5.6)
[2024-06-04 13:42] LABS: T4 Free Direct 1.07 ng/dL (0.76-1.46)
[2024-06-04 14:20] LABS: HIV - WCH Non-Reactive (Nonreactive); Hepatitis B Surface Antigen Non-Reactive (Nonreactive); Hepatitis C Antibody Non-Reactive (Nonreactive); Rubella IgG Reactive (Nonreactive); Syphilis Antibodies Non-reactive
[2024-06-06 08:12] LABS: Thyroid Peroxidase AB < 9 IU/mL (0-34)
[2024-06-09 03:07] LABS: Chlamydia By Nucleic Acid AMP Negative (Negative); Gonococcus By Nucleic Acid AMP Negative (Negative)
== END | disposition home or self-care (01) ==
PROVIDERS: PCP Family Medicine; Referring Provider Advanced Practice Midwife; Visit Provider Advanced Practice Midwife
DX: O09.90 Supervision of high risk pregnancy, unspecified, unspecified trimester (principal); Z3A.00 Weeks of gestation of pregnancy not specified
CPT/HCPCS: 36415; 83036; 84439; 84443; 85025; 86376; 86703; 86762; 86780; 86803; 86850; 86900; 86901; 87086; 87088; 87340; 87491; 87591

== ENCOUNTER 2024-07-27 21:08 | Emergency (ER) | payer BC, SELFPAY ==
[2024-07-27 21:09] VITALS: BP 127/76; PULSE 90; RESP 18; TEMP 36.8; O2SAT 100; BMI 32.5
--- NOTE | 2024-07-27 21:42 | US_ITS ---
INDICATION: Acute left flank pain with hematuria, 17 weeks ges EXAMINATION: Ultrasound US Kidney(s) complete (eg, kidneys and bladder) TECHNIQUE: Kay scale and color doppler images were obtained of the kidneys. COMPARISON: No relevant prior comparison study available FINDINGS: RIGHT KIDNEY: 11.8 cm length. There is no hydronephrosis. 5 mm calculus noted. LEFT KIDNEY: 13.2 cm length. There is mild fullness of the renal collecting system, no definite hydronephrosis. There are 3 echogenic foci consistent with calculi, 7 mm, 7 mm, and 5 mm. URINARY BLADDER: Not well distended. Bladder volume 8 mL. Ureteral jets were not visualized. US/Kidney and Bladder IMPRESSION: Bilateral nonobstructing intrarenal calculi, more numerous on the left. Left renal pelviectasis without definite hydronephrosis. Electronically Signed: Allyn Ferreira MD at 23:27 EST ,
[2024-07-27 22:03] LABS: Absolute Lymphocyte Count 3.39 X10^3/uL (0.83-4.51); Absolute Neutrophil Count 10.3 X10^3/uL (2.0-7.7); Basophil# 0.01 X10^3/uL; Basophil% 0.1 % (0-1); Eosinophils% 1.3 % (0-5); Hematocrit 34.1 % (37-47); Hemoglobin 11.7 g/dL (12.0-15.0); Lymphocyte # 3.39 X10^3/ul (0.83-4.51); Lymphocyte % 22.3 % (19-41); Mean Corp Hgb Conc 34.3 g/dL (32-36); Mean Corpuscular Hgb 30.7 pg (27.0-32.0); Mean Corpuscular Volume 89.5 fL (81-99); Mean Platelet Vol. 10.1 fl (6.2-12.0); Monocyte# 1.22 X10^3/uL; NRBC Flagged by Analyzer 0 % (0-5); Neutrophil % 67.8 % (47-70); Platelet Count 283 K/mm3 (150-450); RBC Distribution Width CV 12.4 % (11.6-14.6); RBC Distribution Width SD 40.7 fl (35.1-43.9); Red Blood Count 3.81 M/mm3 (4.2-5.4); White Blood Count 15.2 K/mm3 (4.4-11.0)
[2024-07-27] MEDS: Metoclopramide 10 MG/2 ML Vial 5 MG IV (22:04)
[2024-07-27] MEDS: Morphine 4 MG/ML Syringe IV (22:04)
[2024-07-27 22:09] LABS: Bacteria 0 SEEN /hpf (None Seen); Mucous, Urine 0 SEEN /hpf (<or=2+)
--- NOTE | 2024-07-27 22:13 | EX.ED.DYSGE1 ---
HPI History of Present Illness Chief Complaint: Flank Pain Detail of Chief Complaint: Abrupt left flank pain with change in color of urine and urgency Informant: patient Onset/Context/Timing Onset: Today (1900) Context: Sudden Onset Timing: Continuous and Waxes and wanes Quality: Pain Location: Left flank radiating anteriorly Current Severity: Moderate Maximum Severity: Severe Worsened by: Nothing Relieved by: Nothing Associated Symptoms Associated Symptoms: nausea without vomiting Narrative Narrative: Patient is a 29-year-old G2, P1 female who presents with abrupt onset of left flank pain rating anteriorly with urgency and change in color of her urine. Urine sample that was obtained is remarkable for hematuria. Patient does have history of renal/ureterolithiasis. Patient denies fever, chills night sweats. Patient denies dysuria. She does endorse frequency as well as urgency. She is approximately 17 weeks gestation. She has no other complaints. There is no history of direct or indirect trauma. She has not noted a rash. Prior similar symptoms: Yes (Ureterolithiasis) Recent Illness/Hospitalization: No PFSH PFSH Medical History Kidney stones Abnormal Pap smear of cervix Seasonal allergies Urinary tract infection Wears glasses Wears contact lenses History of kidney stones Back pain back injections History of back pain Home Medications ?Medication ?Instructions ?Recorded ?Last Taken ?Type cholecalciferol (vitamin D3) 125 10,000 unit PO DAILY 05/27/24 Unknown History mcg (5,000 unit) capsule doxylamine succinate 25 mg tablet 25 mg PO QHS PRN sleep aid 05/27/24 Unknown History (Unisom (doxylamine)) multivit-min no.71-iron fum 28 1 cap PO DAILY 05/27/24 Unknown History mg-folate no.1 1 mg-dha 300 mg capsule (PNV-Bellevue) vitamin B complex 1 cap PO QDAY 05/27/24 Unknown History ondansetron 4 mg disintegrating 4 mg PO Q6H PRN nausea and 06/04/24 Unknown Rx tablet vomiting #90 tabs oxycodone-acetaminophen 5 mg-325 1 tab PO Q6H PRN PRN Pain 3 days 07/28/24 Unknown Rx mg tablet #12 TABLETS Allergy/AdvReac Type Severity Reaction Status Date / Time bupropion (From Wellbutrin) AdvReac Other Verified 07/27/24 21:11 Tetracyclines AdvReac Nausea/Vom/ Verified 07/27/24 21:11 Diarrhea Family History Mother CVA (cerebral vascular accident) Father Psoriasis Heart disease Thyroid disorder hypothyroid Surgical History History of cystoscopy Hx of section History of wisdom tooth extraction, class II edentulism History of tonsillectomy Social History adopted: No household members: spouse and children number of children: 1 current occupational status: employed current occupation: Corporate Nurse for [employer] current occupational exposures/hazards: No pets and animals: Yes pets and animals: dog(s) history of recent travel: Yes ([place] in [place]) out of state: Yes out of country: No sexually active: Yes Smoking Status: Never smoker alcohol intake: never substance use type: does not use diet: gluten free well-balanced diet: daily or most days caffeine: No eating out: 1-3 times/week during the past year weight has: remained stable what type of physical activity do you participate in: none rex/restoration: [employer] seatbelt use: always do you feel safe at home: Yes additional social history: Gil- Works at [employer] ROS ROS ED Constitutional Constitutional ED: Denies chills, fever(s), subjective or sweats Eyes Eyes: Denies blurry vision or change in vision ENT ENT ED: Denies rhinorrhea or sore throat Cardiovascular Cardiovascular: Denies chest pain or palpitations Respiratory/Chest Respiratory/Chest: Denies cough, dyspnea or dyspnea on exertion Gastrointestinal Gastrointestinal: Reports abdominal pain and nausea; Denies constipation, diarrhea, melena or vomiting Genitourinary Genitourinary ED: Reports hematuria and urinary frequency; Denies dysuria Musculoskeletal Musculoskeletal: Reports other Details: Left flank pain ; Denies arthralgias, back pain or myalgias Integumentary Denies rash Neurologic Neurologic: Denies headache(s) or paresthesias Hematologic/Lymphatic Hematologic/Lymphatic: Reports systems reviewed and no addt'l complaints, except as documented EXAM Physical Exam Const Vital Signs: 07/27/24 21:09 Temperature 98.2 F Temperature Source Oral Pulse Rate 90 Respiratory Rate 18 Blood Pressure 127/76 H Blood Pressure Mean 93 Pulse Ox 100 Oxygen Delivery Method Room Air Positive well nourished and well developed General Appearance ED: well developed and pallor; Negative for cyanotic, diaphoretic or NAD HEENT Reports moist mucous membranes HEENT Narrative: Head is atraumatic no cephalic. Ears normal. Nares patent. Eyes PERRL and EOMs intact bilaterally General Eye ED: Negative for pale conjunctiva or scleral icterus Neck no lymphadenopathy, supple and no JVD Resp normal respiratory effort and clear to auscultation bilaterally Cardio regular rate, regular rhythm, S1 normal heart sound, S2 normal heart sound and no murmurs GI normal to inspection, nondistended, normoactive bowel sounds, non-tender, non-distended and no masses; Negative for hepatosplenomegaly GI Narrative: Fundal height is 3-4 fingers below the umbilicus. This would be consistent with 17 weeks gestation. Back/Spine no CVA tenderness Back/Spine Narrative: Inspection of the back is normal. Extremity normal to inspection General Extremety ED: Negative for edema General Extremity: Negative for edema Neuro oriented x3, CN's II-XII intact bilaterally and no sensory deficits noted Sensorium / Orientation: alert Psych mental status grossly normal Skin no rashes or lesions noted, no wounds and skin turgor normal General Skin Exam: elasticity normal and pallor; Negative for jaundice MDM MDM MDM Narrative Medical decision making narrative: Differential diagnosis would include pyelonephritis, obstructing ureteral stone, obstructing renal stone with infection, flank pain of unknown etiology, since patient is ultrasound of the kidney and bladder was ordered. She was medicated with Reglan for her nausea since she took Zofran prior to arrival with no benefit and morphine for her pain. UA was obtained to assess for infection as well as CBC and BMP to assess white count and renal function. White count may be elevated due to the fact that she is 17 weeks gestation. History & Record Review Additional record(s) reviewed:: Prior outpatient record (Seen by Christina Nickerson for routine HEALTH SERVICES ADMINISTRATOR visit on November. Seen for bleeding in early June 04 and also July 03. She was seen by Dr. Mason Cody.) Lab Data Attestation: I reviewed the patient's lab results. Lab results narrative: White count is elevated with normal differential. She does have evidence of mild anemia with normal indices. Labs: Laboratory Results - last 24 hr 07/27/24 07/27/24 21:55 21:58 WBC 15.2 H RBC 3.81 L Hgb 11.7 L Hct 34.1 L MCV 89.5 MCH 30.7 MCHC 34.3 RDW Std Deviation 40.7 RDW Coeff of Lamar 12.4 Plt Count 283 MPV 10.1 Immature Gran % (Auto) 0.500 Neut % (Auto) 67.8 Lymph % (Auto) 22.3 [place] % (Auto) 8.0 Eos % (Auto) 1.3 Baso % (Auto) 0.1 Absolute Neuts (auto) 10.3 H Absolute Lymphs (auto) 3.39 Nucleated RBC % 0 Sodium 139 Potassium 3.6 Chloride 106 Carbon Dioxide 24.0 Anion Gap 9 BUN 13 Creatinine 0.50 L Estim Creat Clear Calc 176.07 Est GFR (MDRD) Af Amer 187 Est GFR (MDRD) Non-Af 154 BUN/Creatinine Ratio 25.9 H Glucose 96 Calcium 8.7 Urine Color Yellow Urine Clarity Sl. Cloudy Urine pH 6.0 Ur Specific Central 1.020 Urine Protein 30 H Urine Glucose (UA) Normal Urine Ketones Negative Urine Occult Blood 250 H Urine Nitrite Negative Urine Bilirubin Negative Urine Urobilinogen Normal Ur Leukocyte Esterase 25 H Urine RBC 50-100 SEEN Urine WBC 0-5 SEEN Ur Squamous Epith Cells 0-5 SEEN Calcium Oxalate Crystal 1+ Urine Bacteria 0 SEEN Urine Mucus 0 SEEN Radiography Diagnostic Testing: Clinical Impression(s) from Imaging Studies Renal Ultrasound 07/27/24 21:42 IMPRESSION: Bilateral nonobstructing intrarenal calculi, more numerous on the left. Left renal pelviectasis without definite hydronephrosis. Electronically Signed: Allyn Ferreira MD at 23:27 EST , Treatment and Re-Evaluation :: Patient was reassessed at 2311. Patient states the pain did improve. Is now come back. She appears pale and obvious discomfort. She was informed of her laboratory results and that I was awaiting for formal read of the ultrasound by radiologist. Since she has bacteria in her urine urine culture was sent. Will also administer dose of Rocephin. Patient was not treated with ketorolac since this is considered category C in second trimester. Comments:: Patient was reassessed again at 2331. She has not received a second dose of morphine. She appears pale. She states she feels more nauseous and almost vomited . Discharge Plan Triage Chief Complaint: Flank Pain ED Provider: Jakob Parham Dx/Rx/DC Orders Clinical Impression: Left flank pain, MTHFR gene mutation, Hematuria, Bilateral renal stones, Bacteriuria, Second trimester Instructions: ED Kidney Stone with Pain Prescriptions: New oxycodone-acetaminophen 5-325 mg tablet 1 tab PO Q6H PRN PRN (Reason: Pain) 3 Days Qty: 12 0RF No Action PNV-Bellevue 28-1-300 mg capsule 1 cap PO DAILY vitamin B complex Capsule 1 cap PO QDAY Patient Comments: methyl folate Unisom (doxylamine) 25 mg tablet 25 mg PO QHS PRN (Reason: sleep aid) ondansetron 4 mg tablet,disintegrating 4 mg PO Q6H PRN (Reason: nausea and vomiting) Qty: 90 4RF cholecalciferol (vitamin D3) 125 mcg (5,000 unit) capsule 10,000 unit PO DAILY Primary Care Provider: Sage Olguin Referrals: Vandana Shi MD [Med Staff - Active Staff] - As soon as possible Sage Olguin DO [Primary Care Provider] - Print Language: Romansh Disposition Disposition: Home, Self Care Discharge Date/Time: 07/28/24 03:00
[2024-07-27 22:18] LABS: Anion Gap 9 (5-15); BUN 13 mg/dL (7-18); BUN/Creat Ratio 25.9 RATIO (10-20); Calcium,Total 8.7 mg/dL (8.5-10.1); Chloride 106 mmol/L (98-107); EST Glomerular Filtration Rate 154 mL/min (>60); Est Glom Filt Rate - Afr Amer 187 mL/min (>60); Estimated Creatinine Clearance 176.07 ml/min; Glucose 96 mg/dL (74-106); Potassium 3.6 mmol/L (3.5-5.1); Sodium Level 139 mmol/L (136-145)
[2024-07-27 22:36] LABS: Color, Urine Yellow (Yellow); Glucose, Dipstick Normal (Normal); Ketone-Dipstick Negative (Negative); Leukocyte Esterase-Dipstick 25 /ul (Negative); Nitrite-Dipstick Negative (Negative); Occult Blood-Urine 250 /ul (Negative); Protein-Dipstick 30 mg/dl (Negative); Urine Bilirubin Dipstick Negative (Negative); Urine Clarity Sl. Cloudy (Clear); Urine Urobilinogen Normal (Normal)
[2024-07-27 22:46] LABS: Red Blood Cells-Urine 50-100 SEEN /hpf (0-5); Squamous Epithelial Cells - UA 0-5 SEEN /hpf (5-10); White Blood Cells 0-5 SEEN /hpf (0-5)
[2024-07-27 22:47] LABS: Calcium Oxalate Crystals Ur 1+ /hpf (<or=2+)
[2024-07-27 23:08] VITALS: BP 110/69; PULSE 82; RESP 16; O2SAT 99
[2024-07-27] MEDS: HYDROmorphone 0.5 MG/0.5 ML SYRINGE IV (23:31)
[2024-07-27] MEDS: Ondansetron 4 MG/2 ML Vial IV (23:31)
[2024-07-28] MEDS: Ceftriaxone 1 GM/50 ML BAG IV (00:08)
[2024-07-28 01:00] VITALS: BP 105/69; PULSE 94; RESP 18; O2SAT 99
[2024-07-28 03:00] VITALS: BP 118/86; PULSE 84; RESP 16; TEMP 36.9; O2SAT 99
== END 2024-07-28 03:00 | disposition home or self-care (01) ==
PROVIDERS: Emergency Provider Emergency Medicine; PCP Family Medicine; Visit Provider Emergency Medicine
DX: O26.892 Other specified pregnancy related conditions, second trimester (principal); O99.891 Other specified diseases and conditions complicating pregnancy; R10.9 Unspecified abdominal pain; N20.0 Calculus of kidney; R82.71 Bacteriuria; R31.9 Hematuria, unspecified; Z3A.17 17 weeks gestation of pregnancy
CPT/HCPCS: 76770; 80048; 81001; 85025; 87086; 87088; 96365; 96375; 96376; 99283; J7040; A4216; J2405

== ENCOUNTER → 2024-09-10 | Outpatient (CLI) | payer BC, SELFPAY | END | disposition home or self-care (01) | LOC: LABSPEC 11:22 | PROVIDERS: PCP Family Medicine; Referring Provider Advanced Practice Midwife; Visit Provider Advanced Practice Midwife | DX: O26.899 Other specified pregnancy related conditions, unspecified trimester (principal); R30.0 Dysuria; Z3A.00 Weeks of gestation of pregnancy not specified | CPT/HCPCS: 87086; 87088 ==

== ENCOUNTER → 2024-10-13 | Outpatient (CLI) | payer BC, SELFPAY ==
[2024-10-13 12:18] LABS: Absolute Lymphocyte Count 2.08 X10^3/uL (0.83-4.51); Absolute Neutrophil Count 9.5 X10^3/uL (2.0-7.7); Basophil# 0.03 X10^3/uL; Basophil% 0.2 % (0-1); Eosinophils% 0.8 % (0-5); Hematocrit 34.5 % (37-47); Hemoglobin 11.5 g/dL (12.0-15.0); Lymphocyte # 2.08 X10^3/ul (0.83-4.51); Lymphocyte % 16.3 % (19-41); Mean Corp Hgb Conc 33.3 g/dL (32-36); Mean Corpuscular Hgb 30.2 pg (27.0-32.0); Mean Corpuscular Volume 90.6 fL (81-99); Mean Platelet Vol. 10.7 fl (6.2-12.0); Monocyte# 0.99 X10^3/uL; Monocyte% 7.7 % (0-10); NRBC Flagged by Analyzer 0 % (0-5); Neutrophil # 9.48 X10^3/uL (2.7-7.7); Neutrophil % 74.2 % (47-70); Platelet Count 272 K/mm3 (150-450); RBC Distribution Width SD 42.7 fl (35.1-43.9); Red Blood Count 3.81 M/mm3 (4.2-5.4); White Blood Count 12.8 K/mm3 (4.4-11.0)
[2024-10-13 12:43] LABS: Glucose Challenge Gest 1H 50g 119 mg/dL (70-140)
[2024-10-13 13:03] LABS: HIV - WCH Non-Reactive (Nonreactive); Syphilis Antibodies Non-reactive
== END | disposition home or self-care (01) ==
LOC: BWCLAB 09:36
PROVIDERS: Advanced Practice Midwife; PCP Family Medicine; Referring Provider Nurse Practitioner Women's Health; Visit Provider Nurse Practitioner Women's Health
DX: O09.92 Supervision of high risk pregnancy, unspecified, second trimester (principal); Z3A.23 23 weeks gestation of pregnancy
CPT/HCPCS: 36415; 82950; 85025; 86703; 86780

== ENCOUNTER → 2024-11-04 | Outpatient (CLI) | payer BC, SELFPAY | END | disposition home or self-care (01) | LOC: LABSPEC 10:37 | PROVIDERS: PCP Family Medicine; Referring Provider Nurse Practitioner Women's Health; Visit Provider Nurse Practitioner Women's Health | DX: N89.8 Other specified noninflammatory disorders of vagina (principal) | CPT/HCPCS: 87070; 87205 ==

== ENCOUNTER → 2024-12-10 | Outpatient (CLI) | payer BC, SELFPAY ==
--- NOTE | 2024-12-10 17:55 | US_ITS ---
PROCEDURE: OB LIMITED WITH BIOMETRICS 12/10/2024 REASON FOR EXAM: GROWTH TECHNIQUE: High resolution obstetric ultrasound performed using a 2D transducer. Standard views obtained, including biometry, anatomy survey, and Doppler studies. COMPARISON: None at the time of dictation. FINDINGS Number: 1 Position: Breech Placental Position: Anterior Placental Abnormalities: None DIMENSIONS: Biparietal Diameter: 8.72 cm/35 weeks and 2 days Head Circumference: 34.52 cm/40 weeks and 0 days Abdominal Circumference: 30.96 cm/34 weeks and 6 days Femur Length: 6.79 cm/34 weeks and 6 days ESTIMATED WEIGHT: 2586 ??? 388 g ESTIMATED WEIGHT PERCENTILE (24+ weeks): 20% ESTIMATED GESTATIONAL AGE: Baseline: 36 weeks and 3 days By Ultrasound: 36 weeks and 4 days ESTIMATED DATE OF DELIVERY: Baseline: 01/04/2025 By Ultrasound: 01/03/2025 BIOPHYSICAL ASSESSMENT: Amniotic Fluid Volume: 13.76 cm Cardiac Motion: 166 (average) Trunk and Limb Motion: Present. MATERNAL ANATOMY: Adnexa: Neither maternal ovary is successfully identified. Cervical Length (if measured): Not visualized ANATOMY: Was not obtained US/OB Limited With Biometrics IMPRESSION: Single live intrauterine gestation in the breech presentation with an estimated gestational age of 36 weeks and 4 days corresponding to an estimated date of delivery on 01/03/2025. No gross abnormal T seen. Reading Location: [place] [address]
== END | disposition home or self-care (01) ==
PROVIDERS: PCP Family Medicine; Referring Provider Obstetrics & Gynecology; Visit Provider Obstetrics & Gynecology
DX: Z34.90 Encounter for supervision of normal pregnancy, unspecified, unspecified trimester (principal)
CPT/HCPCS: 76816

== ENCOUNTER → 2024-12-11 | Outpatient (CLI) | payer BC, SELFPAY | END | disposition home or self-care (01) | LOC: LABSPEC 14:49 | PROVIDERS: PCP Family Medicine; Referring Provider Obstetrics & Gynecology; Visit Provider Obstetrics & Gynecology | DX: O09.93 Supervision of high risk pregnancy, unspecified, third trimester (principal); Z3A.00 Weeks of gestation of pregnancy not specified | CPT/HCPCS: 87081 ==

== ENCOUNTER 2024-12-25 17:36 | Inpatient (IN) | payer BC, SELFPAY ==
[2024-12-25] VITALS (23 sets, daily range): BP systolic 125–168; BP diastolic 67–97; PULSE 81–110; RESP 14–24; TEMP 36.4–37.3; O2SAT 97–100; BMI 37.3
[2024-12-25 16:39] LABS: Hemoglobin 11.5 g/dL (12.0-15.0); Mean Corp Hgb Conc 33.8 g/dL (32-36); Mean Corpuscular Hgb 29.9 pg (27.0-32.0); Mean Corpuscular Volume 88.5 fL (81-99); Mean Platelet Vol. 11.3 fl (6.2-12.0); Platelet Count 304 K/mm3 (150-450); RBC Distribution Width CV 13.8 % (11.6-14.6); RBC Distribution Width SD 44.4 fl (35.1-43.9); Red Blood Count 3.84 M/mm3 (4.2-5.4); White Blood Count 15.4 K/mm3 (4.4-11.0)
[2024-12-25 17:08] LABS: Protein, Urine (Random) 12.5 mg/dL (0.0-12.0); Protein:Creat Ratio 120 mg/g CRE (0-200)
[2024-12-25 17:10] LABS: AST(SGOT) 22 U/L (<=31); Alanine Aminotransfer ALT/SGPT 17 U/L (<=34); Creatinine, Serum 0.63 mg/dL (0.70-1.20); EST Glomerular Filtration Rate 123 (>60)
--- NOTE | 2024-12-25 17:23 | HP.PCM.OB_ITS ---
HPI - General HPI Narrative VALENTE DELGADO, is a 29 y/o @ 38 weeks 4 days who presents to L&D with elevated blood pressures in the office that were 170's/90's. On L&D pressures are lower in the 140's/80's-90's but still eelvated from her baseline in which was anywhere from 1-teens to 130's/ 60's-low 80's.She denies visual changes, epigastric pain, or headache. Her PIH labs were found to all be normal. It appears that she has gestational hypertension. Her baby is breech and she has a history of prior section. The plan is to proceed with delivery via repeat section today. Maternal Data Information AI Calculator Estimated Delivery Date Method Current WG Current Estimate 01/04/25 LMP (Uncertain) 38w 4d Other Estimates 01/06/25 Ultrasound #1 38w 2d PFSH PFSH Medical History Kidney stones Abnormal Pap smear of cervix Seasonal allergies Urinary tract infection Wears glasses Wears contact lenses History of kidney stones Back pain back injections History of back pain Home Medications ?Medication ?Instructions ?Recorded ?Last Taken ?Type cholecalciferol (vitamin D3) 125 10,000 unit PO DAILY 05/27/24 Unknown History mcg (5,000 unit) capsule doxylamine succinate 25 mg tablet 25 mg PO QHS PRN sle ep aid 05/27/24 Unknown History (Unisom (doxylamine)) multivit-min no.71-iron fum 28 1 cap PO DAILY 05/27/24 Unknown History mg-folate no.1 1 mg-dha 300 mg capsule (PNV-[place]) vitamin B complex 1 cap PO QDAY 05/27/24 Unkno wn History ondansetron 4 mg disintegrating 4 mg PO Q6H PRN nausea and 06/04/24 Unknown Rx tablet vomiting #90 tabs oxycodone-acetaminophen 5 mg-325 1 tab PO Q6H PRN PRN Pain 3 days 07/28/24 Unknown Rx mg tablet #12 TABLETS Allergy/AdvReac Type Severity Reaction Status Date / Time bupropion (From Wellbutrin) AdvReac Other Verified 12/25/24 15:08 Tetracyclines AdvReac Nausea/Vom/ Verified 12/25/24 15:08 Diarrhea Family History Mother CVA (cerebral vascular accident) Father Psoriasis Heart disease Thyroid disorder hypothyroid Surgical History History of cystoscopy Hx of section History of wisdom tooth extraction, class II edentulism History of tonsillectomy Social History adopted: No household members: spouse and children number of children: 1 current occupational status: employed current occupation: Corporate Nurse for [employer] current occupational exposures/hazards: No pets and animals: Yes pets and animals: dog(s) history of recent travel: Yes ([place] in February) out of state: Yes out of country: No sexually active: Yes Smoking Status: Never smoker alcohol intake: never substance use type: does not use diet: gluten free well-balanced diet: daily or most days caffeine: No eating out: 1-3 times/week during the past year weight has: remained stable what type of physical activity do you participate in: none rex/jehovah's witness: [employer] seatbelt use: always do you feel safe at home: Yes additional social history: Gil- Works at [employer]) History 2 Elective abortions Hx Para 1 Spontaneous abortions Hx # Term Pregnancies Ectopic pregnancies Hx # Pregnancies Multiple births # of living children 1 Past Pregnancies Del. Date Name GA/Weeks Outcome Route Bth Weight Infant Gen Labor Lgth Anesthesia Del Locatn Provider FOB Unknown 11/03/20 Abebe 39 live - full term 7.2 Male epidural Reggiecedric Gagnon Gil Delivery Date: Last Updated by: Christina Nickerson CNM IUGR-breech Visit Details Expected Delivery Route/Plan TOLAC patient counseled regarding risks/benefits of trial of labor versus repeat . ACOG/uptodate education given to patient. 62.1 % likelihood of success per calculator TOLAC consent form signed: [] Plans Covid status: [] Flu vaccine: [] Tdap vaccine: given Rhogam: NA LARC form signed: yes Problem list reviewed and updated with the most current plan of care details and appropriate orders placed. Relevant counseling for the gestational age provided. Continue routine care and follow up unless otherwise noted in visit notes/problem list details OB Flowsheet Initial Weight: 183 lb Date -?-?-?-?-?-?-?-?-?-?-?-?- EGA Weight BP Urine Prot -?-?-?-?-?-?-?-?-?-?-?-?- Glucose FHR FuHt Pres Dilation -?-?-?-?-?-?-?-?-?-?-?-?- Effaced St Visit Note 06/04/24 -?-?-?-?-?-?-?-?-?-?-?-?- 9w 3d 183 lb (+0 oz) 123/80 -?-?-?-?-?-?-?-?-?-?-?-?- 180 -?-?-?-?-?-?-?-?-?-?-?-?- KW- CRL cons wit h dates. Declines NIPT. Desires TOLAC- will need records from [place]. A1c and thyroid labs ordered 07/03/24 -?-?-?-?-?-?-?-?-?-?-?-?- 13w 4d 186 lb (+3 lb) 134/80 Negative -?-?-?-?-?-?-?-?-?-?-?-?- Negative 160 -?-?-?-?-?-?-?-?-?-?-?-?- SM- spotting ove r the weekend, no vb now and no cramping discussed TOLAC 07/31/24 -?-?-?-?-?-?-?-?-?-?-?-?- 17w 4d 189 lb 2 oz (+6 lb 2 oz) 124/79 Negative -?-?-?-?-?-?-?-?-?-?-?-?- Negative 155 -?-?-?-?-?-?-?-?-?-?-?-?- KW- no vb/crampi ng. possible fm. doing ok with kidney stones. US scheduled. 08/28/24 -?-?-?-?-?-?-?-?-?-?-?-?- 21w 4d 195 lb (+12 lb) 137/82 Negative -?-?-?-?-?-?-?-?-?-?-?-?- Negative 160 -?-?-?-?-?-?-?-?-?-?-?-?- KW- no vb/lof/ct x. good fm 09/10/24 -?-?-?-?-?-?-?-?-?-?-?-?- 23w 3d 200 lb (+17 lb) 120/69 Negative -?-?-?-?-?-?-?-?-?-?-?-?- Negative 165 23 -?-?-?-?-?-?-?--?-?-?-?-?- KW- work in for pelvic pressure/burning cramping. 10 dip positive for blood/leuks. culture sent and ATB started. 28 week labs discussed. 10/13/24 -?-?-?-?-?-?-?--?-?-?-?-?- 28w 1d 204 lb (+21 lb) 120/70 Negative -?-?-?-?-?-?-?-?-?-?-?-?- Negative 154 28 -?-?-?-?-?-?-?-?-?-?-?-?- MH-No VB, lof. G ood FM. 28 wk labs pending. Tdap and larc done 10/29/24 -?-?-?-?-?-?-?-?-?-?-?-?- 30w 3d 206 lb 2 oz (+23 lb 2 oz) 134/76 Negative -?-?-?-?-?-?-?-?-?-?-?-?- Negative 150 Breech -?-?-?-?-?-?-?-?-?-?-?-?- JV- no lof, vagi nal bleeding, or dec fm. no complaints. breech on bedside scan and anxious. states wanted to . last baby was breech. wants scanned every week for her anxiety. 11/04/24 -?-?-?-?-?-?-?-?-?-?-?-?- 31w 2d 208 lb 4 oz (+25 lb 4 oz) 116/78 Negative -?-?-?-?-?-?-?-?-?-?-?-?- Negative 157 0 -?-?-?-?-?-?-?-?-?-?-?-?- MH-work in for v aginal irritation/burning X 2 days. No discharge, LOF, VB. Good FM. CHANDLER BV/comp vag culture pending. 11/12/24 -?-?-?-?-?-?-?-?-?-?-?-?- 32w 3d 208 lb (+25 lb) 133/87 Negative -?-?-?-?-?-?-?-?-?-?-?-?- Negative 145 Breech -?-?-?-?-?-?-?-?-?-?-?-?- KW- no vb/lof/ct x. good fm. has a rash under breast x 1 month-does not appear to be yeast. continue to monitor. not bothersome for patient. declines vaginal pain. 11/27/24 -?-?-?-?-?-?-?-?-?-?-?-?- 34w 4d 208 lb 4 oz (+25 lb 4 oz) 118/69 Negative -?-?-?-?-?-?-?-?-?-?-?-?- Negative 160 35 Breech -?-?-?-?-?-?-?-?-?-?-?-?- SM- breech today , extensive discussion about repeat section. worked through discussin issues of previous concern. 12/11/24 -?-?-?-?-?-?-?-?-?-?-?-?- 36w 4d 214 lb 6 oz (+31 lb 6 oz) 135/84 Negative -?-?-?-?-?-?-?-?-?-?-?-?- Negative 159 37 Breech 0 -?-?-?-?-?-?-?-?-?-?-?-?- JV- normal growt h, still breech. no complaints today. gbs collected 12/18/24 -?-?-?-?-?-?-?-?-?-?-?-?- 37w 4d 216 lb 2 oz (+33 lb 2 oz) 134/80 Negative -?-?-?-?-?-?-?-?-?-?-?-?- Negative 140 37 -?-?-?-?-?-?-?-?-?-?-?-?- Sm- no vb lof go od fm nor egular ctx nl growth 12/25/24 -?-?-?-?-?-?-?-?-?-?-?-?- 38w 4d 217 lb 6 oz (+34 lb 6 oz) 141/97 172/92 Negative -?-?-?-?-?-?-?-?-?-?-?-?- Negative 155 Breech -?-?-?-?-?-?-?-?-?-?-?-?- KW- no vb/lof/ct x. good fm. C/S for saturday. no headache/BV. some pitting edema elevated bp in office to for evaluation. ROS Constitutional Constitutional: Denies change in weight, fatigue, fever(s), headache(s), poor appetite or weakness Eyes Eyes: Denies blurry vision, change in vision, seeing flashes or spots in vision ENT HEENT: Denies dizziness, headache(s), loss taste/smell or sore throat Cardiovascular Cardiovascular: Denies chest pain, dizziness, dyspnea, irregular heart rhythm, leg edema, palpitations, rapid heart rate or vomiting Respiratory/Chest Respiratory/Chest: Denies chest tightness, cough, dyspnea or breast pain Gastrointestinal Gastrointestinal: Denies abdominal pain, anorexia, constipation, cramping, diarrhea, hemorrhoids, vomiting or weight changes Genitourinary Genitourinary: Denies dysuria, flank pain, genital lesions, genital pain, urinary frequency or urinary urgency Musculoskeletal Musculoskeletal: Denies back pain, difficulty walking, joint pain, limited range of motion, muscle cramps or numbness Integumentary Integumentary: Denies lesions or unusual bruising Neurologic Neurologic: Denies abnormal movements, abnormal speech, dizziness, numbness, seizure-like activity or syncope Psychiatric Psychiatric: Denies anxiety, behavioral changes, change in appetite, change in libido, cognitive impairment, confusion, depression, difficulty concentrating, hallucinations or suicidal thoughts Endocrine Endocrinology: Denies excessive sweating, polydipsia or polyuria Hematologic/Lymphatic Hematologic/Lymphatic: Denies easy bleeding, easy bruising or lymphadenopathy Allergic/Immunologic Allergic/Immunologic: Denies itchy eyes, lip swelling, seasonal rhinorrhea, rhinitis, throat swelling, tongue swelling, eczemia, wheezing or asthma Vital Signs Vital Signs Vital Signs: 12/25/24 16:32 12/25/24 16:32 12/25/24 16:33 Pulse Rate 100 98 Blood Pressure 139/94 H BP Systolic 139 BP Diastolic 94 Pulse Ox 12/25/24 16:33 12/25/24 16:47 12/25/24 16:47 Pulse Rate 107 H Blood Pressure 144/90 H BP Systolic 144 BP Diastolic 90 Pulse Ox 99 12/25/24 17:02 12/25/24 17:02 12/25/24 17:17 Pulse Rate 108 H Blood Pressure 146/90 H 140/84 H BP Systolic 146 140 BP Diastolic 90 84 Pulse Ox 12/25/24 17:17 Pulse Rate 102 H Blood Pressure BP Systolic BP Diastolic Pulse Ox Physical Exam Const alert, oriented x3, no apparent distress and healthy appearing General Appearance: cooperative; Negative for anxious HEENT normocephalic Face and Sinus: normal facial exam Eyes EOMs intact bilaterally and no scleral icterus General Eye: normal appearance of both eyes Neck full ROM and supple Lymph Lymphatic: no lymphadenopathy noted Chest Chest: abnormal inspection of the chest Resp normal respiratory effort Effort and Inspection: able to speak in complete sentences Cardio regular rate GI soft to palpation and non-tender Inspection: gravid Palpation: soft; Negative for tender Back/Spine no CVA tenderness Extremity normal to inspection, full ROM and no clubbing, cyanosis or edema General Extremity: Negative for calf tenderness or edema Skin Lesions: no lesions Rashes: no rashes Psych mental status grossly normal Labs Labs Labs: Blood Type A POSITIVE Antibody Screen NEGATIVE Hct 34.0 % (37-47) L Hgb 11.5 g/dL (12.0-15.0) L Pap Smear Negative Obstetrics Ultrasound Syphilis Total Ab Non-reactive Rubella IgG Antibody Reactive (Nonreactive) Hep Bs Antigen Non-Reactive (Nonreactive) Hepatitis C Antibody Non-Reactive (Nonreactive) Chlamydia DNA (GUILHREME) Negative (Negative) N.gonorrhoeae DNA (GUILHERME) Negative (Negative) HIV 1&2 Antibody Non-Reactive (Nonreactive) Glucose 1 Hr 50 gm 119 mg/dL (70-140) Miscellaneous Test Assessment & Plan (1) Gestational hypertension: (2) Breech presentation: (3) Obesity during : COMMENT: [id number] (4) History of prior with IUGR : COMMENT: growth US at 36 weeks (5) Supervision of high-risk : QUALIFIERS: Trimester: third trimester Qualified Code(s): O09.93 - Supervision of high risk , unspecified, third trimester COMMENT: PRR, , AI 01/04/25, PC Abebe, Gil (6) : QUALIFIERS: Weeks of gestation: 38 weeks Qualified Code(s): Z3A.38 - 38 weeks gestation of COMMENT: declines genetic & carrier testing (7) Chronic urticaria: (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 I have discussed with the patient the risks, benefits, and alternatives of the procedure which include but are not limited to risks of anesthesia, bleeding, infection, possible damage to bowel, bladder, or surrounding vasculature which could lead to additional surgery to evaluate any complications. Patient agrees to procedure and wishes to proceed. plan for repeat section at 730 pm today when she is NPO x 8 hours. ERAS protocol ordered
[2024-12-25] MEDS: 0.9% Saline Lock 10 ML Syringe IV (17:32)
[2024-12-25] MEDS: Lactated Ringers 1,000 ML 999 ML IV (17:32)
[2024-12-25 17:40] LABS: Uric Acid 5.1 mg/dL (2.6-6.0)
[2024-12-25] MEDS: Acetaminophen 500 MG Tablet 1000 MG PO (18:47)
[2024-12-25] MEDS: Sodium Citrate/Citric Acid 30 ML UDC PO (18:47)
[2024-12-25] MEDS: Lactated Ringers 1,000 ML 150 ML IV (18:47)
[2024-12-25 19:00] LABS: Syphilis Antibodies Nonreactive (Nonreactive)
[2024-12-25] MEDS: Cefazolin 2 GM in Syringe IV (19:44)
--- NOTE | 2024-12-25 20:47 | EX.PCM.OBRPT ---
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 (9) MTHFR gene mutation: (10) Hx of section: COMMENT: 11/03/2020 Reggie breech Abebe; hopeful for TOLAC, RLTCS scheduled for 12/28 @ 12 with Maternal Data Information AI Calculator Estimated Delivery Date Method Current WG Current Estimate 01/04/25 LMP (Uncertain) 38w 4d Other Estimates 01/06/25 Ultrasound #1 38w 2d Final AI: 01/04/25 Final AI Source: LMP Gestational age: 38 weeks 4 days Operative Report (OB) Details Procedure Type: low transverse Date of Procedure: 12/25/24 Procedure Start Time: 20:02 Procedure Stop Time: 20:53 Time of Delivery: 20:09 Pre-Operative Diagnosis: Repeat Elective , Breech and Other (gestational hypertension ) Other Pre-Operative diagnosis: none Post-Operative Diagnosis: Same as Pre-operative diagnosis Classification: DAWSON Type of Anesthesia: Spinal Antibiotic Given: Ancef 2 grams IV x1 Drain: Tsang to straight drain Estimated Blood Loss: 400cc Findings Description of surgery: The patient was diagnosed with gestational hypertension at 38 weeks 4 days. She was found to have a breech presentation and has a history of prior section. The decision was made to proceed with dawson repeat section The patient was brought to the operating room, spinal anesthesia was found to be adequate. She was prepped and draped in the normal sterile fashion and was placed in a dorsal supine position with a leftward tilt. Pfannenstiel skin incision was made with a scalpel and carried through to the underlying layers. The fascia was nicked in the midline and extended laterally using Irving scissors. The anterior aspect of the fascia was grasped with Roni clamps and the underlying rectus muscles dissected off using the Metzenbaum scissors. The rectus muscles were in the midline. Peritoneum was entered sharply. The uterus was identified and a bladder blade was inserted into the abdomen. Bladder flap was created off the uterus using Metzenbaum scissors. A transverse incision was made with a scalpel and extended laterally manually. The 's feet were first to present and were gently grasped and guided out of the uterine incision. The legs and torso followed. The anterior shoulder was carefully swept across the chest. The was rotated to the opposite side and opposite arm was swept down and over the chest. The head was delivered with the help of my urology physician assistant using fundal pressure. The mouth and nares were bulb suctioned. After a 30 second delay the cord was clamped and cut. The end was handed off to the awaiting communication center operator for routine assessment. Placenta was delivered manually without difficulty but was noted to be bilobed and sent for pathology analysis. The uterus was exteriorized and cleared of all clots and debris. Incision was closed with an 0 Vicryl suture in a running locked fashion. Second layer of 1-0 monocryl suture was used in imbricating manner to create excellent closure and hemostasis. The uterus was returned to the abdomen. The gutters were cleared of all clots and debris. The peritoneum was closed in a pursestring pattern using a 3-0 Vicryl suture. This muscle was reapproximated with a 3-0 Vicryl. The fascia and the muscle was injected with exparel 20 cc + 0.5% marcaine 30cc. The fascia was closed with a stratafix suture. Subcutaneous tissue layer was irrigated then closed using a plain gut suture. The skin was closed with a 4-0 Monocryl subcuticular stitch. The skin was also sealed with surgical glue. The patient tolerated the procedure well sponge lap and needle counts were correct at each tissue closure plane and the patient is now being brought to the recovery room in stable condition. The urology physician assistant helped with retraction, suction, and suture cutting. She also helped with fundal pressure to assist with the delivery of the . Surgical findings: viable female Olya scores 8/9 Presentation: Vertex Amniotic Fluid Description: Clear Placental Delivery Description: Expressed Placenta Disposition: [facility] Specimen collected: No Cord Vessel Description: 3 Vessels Cord Entanglement: None Infant A gender: Female (1 minute): 8 (5 minute): 9 Delayed Cord Clamping: Yes Vault Attendant airport operations specialist: Yes Mechanical Cad Drafter: Ramiro Smith Tasks completed by dietetic assistant: Closing, Hemostasis: Clamp and Retracting Complications Complications: No Multi Select Codes Urinary/Genital Urinary/Genital CPT Codes: 08733 Delivery [facility]
--- NOTE | 2024-12-25 20:54 | PCM.DC ---
Discharge Instructions Diet Discharge Diet: No restrictions DC O2, CPAP, BIPAP needs Home O2 Discharge instructions: No Dressing / Incision Discharge Activity: May Not Drive (for 2 weeks or while taking narcotic pain medications.), May Shower and May Take a Tub Bath (in 7 days.) May resume sexual activity in: 4-6 weeks Weight Bearing Status: Full weight bearing Lifting Restrictions: 20 pounds Dressing / Incision Call your doctor if your incision/area has: Continuous Slow Oozing, Sudden Increased Bleeding, Increased Pain/ Swelling, Increased Redness and Foul Smelling Discharge Call your doctor if you observe: Fever of 101 or Higher and Using more than 1 pad per hour Suture Line Care: Avoid Pulling/Pushing and Avoid Pinching/Bending Cleanse incision/area with: Soap & Water and Keep Dressing Clean & Dry Follow Up Care Please Follow Up With: Paty Cavazos DO When: Call [phone] to make an appointment for an incision check in 1-2 weeks. Test Results: Test results from this visit will be discussed in further detail at your follow-up appointment, if applicable. Discharge Plan Admission Admit Date/Time: 12/25/24 17:36 Primary Reason for Your Visit: repeat section Attending Provider: Paty Cavazos Primary Care Provider: Sage Olguin Discharge Orders/Prescriptions Prescriptions: New ibuprofen 800 mg tablet 800 mg PO Q8H PRN (Reason: pain) Qty: 30 0RF Continued PNV-[place] 28-1-300 mg capsule 1 cap PO DAILY vitamin B complex Capsule 1 cap PO QDAY Patient Comments: methyl folate Unisom (doxylamine) 25 mg tablet 25 mg PO QHS PRN (Reason: sleep aid) ondansetron 4 mg tablet,disintegrating 4 mg PO Q6H PRN (Reason: nausea and vomiting) Qty: 90 4RF cholecalciferol (vitamin D3) 125 mcg (5,000 unit) capsule 10,000 unit PO DAILY oxycodone-acetaminophen 5-325 mg tablet 1 tab PO Q6H PRN PRN (Reason: Pain) 3 Days Qty: 12 0RF ascorbic acid (vitamin C) [C-1000] 1,000 mg tablet 1 g PO DAILY magnesium 250 mg tablet 250 mg PO DAILY famotidine [Pepcid] 20 mg tablet 20 mg PO PRN Referrals / Follow Up: Sage Olguin DO [Primary Care Provider] - Disposition Disposition (needs filled in before D/C Order can be placed): Home, Self Care
[2024-12-25] MEDS: Oxytocin 15 Units/NS 250ml 15 UNITS/250 ML IV.SOLN 83 UNITS IV (21:15)
[2024-12-25] MEDS: Bupivacaine 0.5% PF 10 ML VIAL 30 ML OPERA.SITE (21:20)
[2024-12-25] MEDS: BUPIVACAINE LIPOSOME/PF 20 ML VIAL OPERA.SITE (21:20)
[2024-12-25] MEDS: Ketorolac 30 MG/ML Syringe IV (22:05)
[2024-12-25] MEDS: proCHLORPERazine 10 MG/2 ML Vial IV (22:29)
[2024-12-26] VITALS (14 sets, daily range): BP systolic 106–144; BP diastolic 66–92; PULSE 85–105; RESP 14–18; TEMP 36.1–37.1; O2SAT 96–100
[2024-12-26] MEDS: Lactated Ringers 1,000 ML 100 ML IV (00:08)
[2024-12-26] MEDS: Acetaminophen 500 MG Tablet 1000 MG PO ×4 (01:04→20:31)
[2024-12-26] MEDS: Ondansetron 4 MG/2 ML Vial IV (02:52)
[2024-12-26] MEDS: Ketorolac 30 MG/ML Syringe IV ×3 (02:52→15:58)
[2024-12-26 03:12] LABS: Hematocrit 28.7 % (37-47); Hemoglobin 9.6 g/dL (12.0-15.0); Mean Corp Hgb Conc 33.4 g/dL (32-36); Mean Corpuscular Hgb 29.8 pg (27.0-32.0); Mean Corpuscular Volume 89.1 fL (81-99); Mean Platelet Vol. 10.7 fl (6.2-12.0); Platelet Count 272 K/mm3 (150-450); RBC Distribution Width CV 13.5 % (11.6-14.6); Red Blood Count 3.22 M/mm3 (4.2-5.4); White Blood Count 23.3 K/mm3 (4.4-11.0)
--- NOTE | 2024-12-26 09:56 | PN.OBGYN_ITS ---
Subjective Subjective Patient is laying in bed comfortably without complaints. She states that she slept on an off during the night. Lochia is mild and pain is minimal but she states is starting to become worse. Objective Data Objective Data Vital Signs: Vital Signs Temp Pulse Resp BP Pulse Ox O2 Del Method 98 F 105 H 16 132/77 H 99 Room Air 12/26/24 09:10 12/26/24 09:10 12/26/24 09:10 12/26/24 09:10 12/26/24 09:10 12/26/24 09:10 Oxygen Delivery Method Room Air Weight: 217 lb 4 oz Body Mass Index (BMI) 37.3 Intake & Output: Intake and Output for Last 24 Hours 12/24/24 12/25/24 12/26/24 23:59 23:59 23:59 Intake Total 1405 / 1405 578.33 / 578.33 Output Total 400 / 400 Balance 1005 / 1005 578.33 / 578.33 Lab / Micro Data 12/26/24 03:00 12/25/24 16:15 Labs: Laboratory Results - last 24 hr 12/25/24 14:15: U Random Total Protein 12.5 H, Urine Creatinine 104.00, Protein/Creatinin Ratio 120 12/25/24 16:15: WBC 15.4 H, RBC 3.84 L, Hgb 11.5 L, Hct 34.0 L, MCV 88.5, MCH 29.9, MCHC 33.8, RDW Std Deviation 44.4 H, RDW Coeff of Lamar 13.8, Plt Count 304, MPV 11.3, Creatinine 0.63 L, Est GFR (MDRD) Non-Af 123, Uric Acid 5.1, AST 22, ALT 17 12/25/24 17:50: Syphilis Total Ab Nonreactive, Blood Type Cancelled, A1 Antigen Typing Cancelled, Rho(D) Type Cancelled, Antibody Screen Cancelled 12/25/24 18:37: Blood Type A POSITIVE, Antibody Screen POSITIVE, Antibody Identification ANTI-LITTLE c 12/26/24 03:00: WBC 23.3 H, RBC 3.22 L, Hgb 9.6 L, Hct 28.7 L, MCV 89.1, MCH 29.8, MCHC 33.4, RDW Std Deviation 44.0 H, RDW Coeff of Lamar 13.5, Plt Count 272, MPV 10.7 ROS Constitutional Constitutional: Reports systems reviewed and no addt'l complaints, except as documented Cardiovascular Cardiovascular: Denies chest pain, dizziness, dyspnea or irregular heart rhythm Respiratory/Chest Respiratory/Chest: Denies cough, pain on inspiration or shortness of breath at rest Gastrointestinal Gastrointestinal: Denies abdominal pain, nausea or vomiting Genitourinary Genitourinary: Denies burning urination Musculoskeletal Musculoskeletal: Denies muscle cramps, muscle spasms or muscle weakness Neurologic Neurologic: Denies confusion, dizziness, headache(s) or lack of coordination Psychiatric Psychiatric: Denies anxiety, behavioral changes or depression Physical Exam Const alert, oriented x3 and no apparent distress HEENT normocephalic Resp normal respiratory effort and normal air movement GI soft to palpation, non-tender and non-distended Rectal Exam: other Other Details: Incision is clean, dry, and intact but there are 2 spots of blood on either side of dressing no CVA tenderness Extremity normal to inspection General Extremity: edema bilateral (trace ) Assessment & Plan (1) Status post section: COMMENT: sven 12/25/24- Zeny (2) Gestational hypertension: (3) Breech presentation: (4) Obesity during : COMMENT: [id number] (5) History of prior with IUGR : COMMENT: growth US at 36 weeks (6) Supervision of high-risk : QUALIFIERS: Trimester: third trimester Qualified Code(s): O09.93 - Supervision of high risk , unspecified, third trimester COMMENT: PRR, , AI 01/04/25, PC Abebe, Gil (7) : QUALIFIERS: Weeks of gestation: 38 weeks Qualified Code(s): Z 3A.38 - 38 weeks gestation of COMMENT: declines genetic & carrier testing (8) Chronic urticaria: (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 routine post care 2. breast feeding- support given 3. rh positive 4. rubella immune 5. plan to optimize pain management today. she did receive deramorph plus exparel in preparation for pain management. She had a very bad experience after her last delivery and seems to have some anxiety around this. will offer added muscle relaxer medication as needed.
[2024-12-26] MEDS: 0.9% Saline Lock 10 ML Syringe IV ×3 (10:18→15:58)
[2024-12-26] MEDS: Polyethylene Glycol 3350 17 GM PACKET PO (10:18)
--- NOTE | 2024-12-26 16:25 | CASEMGMT ---
Social Work Assessment Labor and Delivery Unit Patient Address: [address] [place] [address] Phone number: [phone] Date of Referral: 12/25/2024 Time of Referral: 22:47 Referred By: Paty Cavazos Date of Intervention: 12/26/2024 Time of Intervention: 16:23 Reason for Referral: Mental Health; history of anxiety and depression. History obtained from: Medical records, mother of baby (MOB) and father of baby (FOB).? Household composition: MOBFOShila (Sage, age 29), their 4 year old son Abebe and daughter, Olya, born 12/25/2024. Patient's parent/guardian status: MOB and FOB have been together for 16 years and for 9 of those years.? Both are actively involved and will be providing care for the baby. MOB denied any concerns with domestic violence and described a positive and supportive relationship with the FOB. Medical History: ?MOB received PNC through [facility] beginning at 9 weeks and 3 days. Visits were observed to be routine. Apgars: 8 and 9. Weight: 6 pounds and 14 ounces. Lollypop Machine Operator: Dr. Mcgregor. Educational Status: MOB and FOB denied any concerns with reading and/or writing.? MOB attended vocational school and earned her SERVER PROGRAMMER f while in High School. FOShila earned his Bachelor?s Degree in Construction Engineering. Financial Status: MOB and FOB reported their income is sufficient to meet the needs of their family at this time. 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 The FOB is currently employed full-time with [employer] and is taking 1 week of paternity leave. Infant Supplies: MOB and FOB reported they have all the supplies they need for baby at this time including but not limited to: Car seat, bassinet, pack-n-play, crib, diapers, bottles, breast pump and clothing. Childcare/Caregiver(s): During MOB and FOB?s work hours, will attend a Daycare Center in [place]. Transportation:? MOB and FOB reported they are both licensed drivers and have a reliable vehicle to take baby to and from all medical appointments. No transportation issues identified. Programs/Agencies Involved: None and none needed. Children Services/Legal Issues:? Denied. Behavioral Health Issues: ??Mental Health History: ?MOB has a history of Anxiety, Depression, PPD, and ADHD. MOB is not on any medication however reported symptoms are effectively managed at this time. MOB reported she hasn?t had noticeable or unmanaged symptoms since 2015. ?FOB has a history of Anxiety and ADHD and is on medications which the FOB described to be as effective. ?Substance Use History:?? MOB and FOB denied any history of drug or alcohol abuse.?Family History: ?Denied.? Drug Screens: ?None obtained at the time of this admission. ? Family/Social Stressors: ?MOB and FOB denied any current family or social stressors. Support Systems: ?Yes. ?MOB identified her biggest support as the FOB, as well as ?s maternal grandmother (MGM). Depression/Shaken Baby/Safe Sleeping: medical office worker provided verbal and written education on PPD, Safe Sleeping and Shaken Baby.? MOB and FOB verbalized an understanding. ?Card Scraper also reviewed risk factors that can increase risk for PPD. ?? ASSESSMENT:? Late entry note: ?MOB and FOB provided consent to social work visit. At the time of the visit, MOB was in the hospital bed, holding and the FOB was close-by on a couch.? Both were actively engaged and cooperative. medical office worker observed positive interaction towards the MOB and FOB and at one point, the FOB stood up and took to be able to hold himself.? Both MOB and FOB appeared to be very attentive to ?s needs and was observed to be gentle with . At the end of the assessment, school social worker requested to speak with the MOB alone which MOB and FOB were both agreeable to. MOB reported feeling safe, denied any previous or current domestic violence. Drug or alcohol abuse or unmanaged mental health issues with either herself of the FOB. Safe Plan of Care for infant related to substance use: N/A; not needed. ? PLAN:? Baby to be discharged home when ready.? medical office worker also provided written information on depression, depression resources and Help Me Grow as additional resources offered by school social worker which MOB and FOB accepted. No other services requested or indicated. Paty Reagan, POLLUTION CONTROL ENGINEER, NECKTIE TURNER
[2024-12-26] MEDS: oxyCODONE 5 MG Tablet PO ×2 (20:39→21:26)
[2024-12-26] MEDS: Naproxen 500 MG Tablet PO (22:02)
[2024-12-27] MEDS: oxyCODONE 5 MG Tablet PO ×2 (01:29→05:49)
[2024-12-27 01:33] VITALS: BP 123/76; PULSE 74; RESP 16; TEMP 36.4; O2SAT 99
[2024-12-27] MEDS: Acetaminophen 500 MG Tablet 1000 MG PO ×2 (03:53→09:51)
[2024-12-27 06:49] VITALS: BP 132/82; PULSE 100; RESP 16; TEMP 36.4; O2SAT 99
[2024-12-27] MEDS: SimETHICONE 80 MG Chewable Tablet PO (06:55)
[2024-12-27 08:54] VITALS: BP 139/86; PULSE 89; RESP 16; TEMP 36.1; O2SAT 96
[2024-12-27] MEDS: Naproxen 500 MG Tablet PO (09:51)
[2024-12-27] MEDS: Polyethylene Glycol 3350 17 GM PACKET PO (09:52)
--- NOTE | 2024-12-27 09:57 | DS.PCM_ITS ---
Providers Date of Admission: 12/25/24 Primary Care Physician: Dr. Sage Olguin DO Reason For Visit: REPEAT C SECTION Diagnosis Discharge Diagnosis (1) Status post section: Status: Acute Code(s): Z98.891 - History of uterine scar from previous surgery (2) Gestational hypertension: Status: Acute Code(s): O13.9 - Gestational [-induced] hypertension without significant proteinuria, unspecified trimester (3) Breech presentation: Status: Acute Code(s): O32.1XX0 - Maternal care for breech presentation, not applicable or unspecified (4) Obesity during : Status: Acute Code(s): O99.210 - Obesity complicating , unspecified trimester (5) History of prior with IUGR : Status: Acute Code(s): Z87.59 - Personal history of other complications of , childbirth and the puerperium (6) Supervision of high-risk : Status: Acute Code(s): O09.90 - Supervision of high risk , unspecified, unspecified trimester Qualifiers: Trimester: third trimester Qualified Code(s): O09.93 - Supervision of high risk , unspecified, third trimester (7) : Status: Acute Code(s): Z34.90 - Encounter for supervision of normal , unspecified, unspecified trimester Qualifiers: Weeks of gestation: 38 weeks Qualified Code(s): Z3A.38 - 38 weeks gestation of (8) Chronic urticaria: Status: Chronic Code(s): L50.8 - Other urticaria (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 routine post care 2. breast feeding- support given 3. rh positive 4. rubella immune 5. plan to optimize pain management today. she did receive deramorph plus exparel in preparation for pain management. She had a very bad experience after her last delivery and seems to have some anxiety around this. will offer added muscle relaxer medication as needed. Medications at Discharge Home Medications cholecalciferol (vitamin D3) 125 mcg (5,000 unit) capsule 10,000 unit PO DAILY vitamin 05/27/24 doxylamine succinate 25 mg tablet (Unisom (doxylamine)) 25 mg PO QHS PRN sleep aid 05/27/24 multivit-min no.71-iron fum 28 mg-folate no.1 1 mg-dha 300 mg capsule (PNV- Butler) 1 cap PO DAILY 05/27/24 vitamin B complex 1 cap PO QDAY methyl folate 05/27/24 ondansetron 4 mg disintegrating tablet 4 mg PO Q6H PRN nausea and vomiting #90 tabs 06/04/24 oxycodone-acetaminophen 5 mg-325 mg tablet 1 tab PO Q6H PRN PRN Pain 3 days #12 TABLETS 07/28/24 ascorbic acid (vitamin C) 1,000 mg tablet (C-1000) 1 g PO DAILY vitamin 12/25/24 famotidine 20 mg tablet (Pepcid) 20 mg PO PRN heartburn 12/25/24 ibuprofen 800 mg tablet 800 mg PO Q8H PRN pain #30 tabs 12/25/24 magnesium 250 mg tablet 250 mg PO DAILY sleep aid 12/25/24 oxycodone-acetaminophen 5 mg-325 mg tablet (Percocet) 1 tab PO Q4H PRN pain 7 days #40 tabs 12/27/24 Hospital Course Operations section Summary of Care Provided Minutes Spent on Discharge: 30 Hospital Course: The patient was admitted for a repeat section on 12/25/24 and gestational hypertension. There were no complications. On day #1 she was tolerating pain well and ambulating, on day #2 she was ready for discharge. Physical Exam HEENT normocephalic Resp normal respiratory effort and normal air movement GI soft to palpation, non-tender and non-distended Rectal Exam: other Other Details: Incision is clean, dry, and intact no CVA tenderness Extremity normal to inspection General Extremity: edema bilateral (trace ) Weight / BMI Weight Weight: 217 lb 4 oz Body Mass Index (BMI) 37.3 ABG / Lab / Microbiology Data 12/26/24 03:00 12/25/24 16:15 D/C Instructions Discharge Diet: No restrictions May resume sexual activity in: 4-6 weeks Weight Bearing Status: Full weight bearing Call your doctor if your incision/area has: Continuous Slow Oozing, Sudden Increased Bleeding, Increased Pain/ Swelling, Increased Redness and Foul Smelling Discharge Call your doctor if you observe: Fever of 101 or Higher and Using more than 1 pad per hour Suture Line Care: Avoid Pulling/Pushing and Avoid Pinching/Bending Cleanse incision/area with: Soap & Water and Keep Dressing Clean & Dry DC O2, CPAP, BIPAP Needs Home O2 Discharge instructions: No Please Follow Up With: Paty Cavazos DO When: Call [phone] to make an appointment for an incision check in 1-2 weeks. Meaningful Use Info Meaningful Use Meaningful Use Diagnoses (Choose all that apply): None applicable Ischemic Stroke Statin Dosing Therapy Reference: STATIN DOSE THERAPY REFERENCE: * Patients > 75 years receive moderate or high dose statin therapy. * Patients 75 years or YOUNGER should receive HIGH intensity statin dose unless contraindicated. You will be required to document reason for non-treatment if statin daily dose does not meet guidelines. HIGH DOSE STATIN THERAPY DAILY Atorvastatin > than or = to 40 mg Rosuvastatin > than or = to 20 mg Amlodipine + Atorvastatin > than or = to 2.5/40 mg Ezetimibe + Simvastatin 10/80 mg Simvastatin 80mg Discharge Plan Admission Admit Date/Time: 12/25/24 17:36 Primary Reason for Your Visit: repeat section Attending Provider: Paty Cavazos Primary Care Provider: Sage Olguin Discharge Orders/Prescriptions Prescriptions: New ibuprofen 800 mg tablet 800 mg PO Q8H PRN (Reason: pain) Qty: 30 0RF oxycodone-acetaminophen [Percocet] 5-325 mg tablet 1 tab PO Q4H PRN (Reason: pain) 7 Days Qty: 40 0RF Continued PNV-Butler 28-1-300 mg capsule 1 cap PO DAILY vitamin B complex Capsule 1 cap PO QDAY Patient Comments: methyl folate Unisom (doxylamine) 25 mg tablet 25 mg PO QHS PRN (Reason: sleep aid) ondansetron 4 mg tablet,disintegrating 4 mg PO Q6H PRN (Reason: nausea and vomiting) Qty: 90 4RF cholecalciferol (vitamin D3) 125 mcg (5,000 unit) capsule 10,000 unit PO DAILY oxycodone-acetaminophen 5-325 mg tablet 1 tab PO Q6H PRN PRN (Reason: Pain) 3 Days Qty: 12 0RF ascorbic acid (vitamin C) [C-1000] 1,000 mg tablet 1 g PO DAILY magnesium 250 mg tablet 250 mg PO DAILY famotidine [Pepcid] 20 mg tablet 20 mg PO PRN Referrals / Follow Up: Sage Olguin DO [Primary Care Provider] - Disposition Disposition (needs filled in before D/C Order can be placed): Home, Self Care
== END 2024-12-27 10:45 | disposition home or self-care (01) | DRG 787 ==
LOC: WPOUT 17:38 → WP 17:38
PROVIDERS: Admitting Provider Obstetrics & Gynecology; PCP Family Medicine; Referring Provider Obstetrics & Gynecology; Visit Provider Obstetrics & Gynecology
DX: O32.1XX0 Maternal care for breech presentation, not applicable or unspecified (principal); E72.12 Methylenetetrahydrofolate reductase deficiency; O99.214 Obesity complicating childbirth; O99.284 Endocrine, nutritional and metabolic diseases complicating childbirth; O13.4 Gestational [pregnancy-induced] hypertension without significant proteinuria, complicating childbirth; Z37.0 Single live birth; O34.211 Maternal care for low transverse scar from previous cesarean delivery; Z3A.38 38 weeks gestation of pregnancy; Z87.59 Personal history of other complications of pregnancy, childbirth and the puerperium
CPT/HCPCS: 59025; 59050; 82565; 82570; 84156; 84450; 84460; 84550; 85027; 86780; 86850; 86870; 86900; 86901; 99221; A4216; G0378; J0666; J2405

== ENCOUNTER 2024-12-28 19:40 | Outpatient (CLI) | payer BC, SELFPAY ==
[2024-12-28] VITALS (10 sets, daily range): BP systolic 122–151; BP diastolic 72–97; PULSE 109; RESP 16; TEMP 36.4; O2SAT 100; BMI 36.4
[2024-12-28 20:59] LABS: Hematocrit 26.8 % (37-47); Hemoglobin 8.6 g/dL (12.0-15.0); Mean Corp Hgb Conc 32.1 g/dL (32-36); Mean Corpuscular Hgb 29.8 pg (27.0-32.0); Mean Corpuscular Volume 92.7 fL (81-99); Mean Platelet Vol. 10.5 fl (6.2-12.0); Platelet Count 324 K/mm3 (150-450); RBC Distribution Width CV 13.9 % (11.6-14.6); RBC Distribution Width SD 47.2 fl (35.1-43.9); Red Blood Count 2.89 M/mm3 (4.2-5.4); White Blood Count 12.3 K/mm3 (4.4-11.0)
--- NOTE | 2024-12-28 21:16 | NURSING ---
This RN completed head to toe assessment. Not noted in shift clinical findings - clonus is absent, reflexes 2+, non pitting edema in lower extremities and patient does not c/o of headache, visual disturbances or epigastric pain. Will continue to monitor. Oswald Garduno RN
[2024-12-28 21:53] LABS: AST(SGOT) 33 U/L (<=31); Alanine Aminotransfer ALT/SGPT 25 U/L (<=34); Creatinine, Serum 0.73 mg/dL (0.70-1.20); EST Glomerular Filtration Rate 114 (>60); Estimated Creatinine Clearance 128.06 ml/min (50-250); Uric Acid 5.4 mg/dL (2.6-6.0)
[2024-12-28] MEDS: Acetaminophen 325 MG Tablet PO (23:52)
[2024-12-28] MEDS: oxyCODONE 5 MG Tablet PO (23:52)
[2024-12-29] VITALS: BP 129/82
[2024-12-29 01:00] VITALS: BP 137/84
[2024-12-29 02:00] VITALS: BP 123/80
[2024-12-29 03:00] VITALS: BP 130/83
[2024-12-29] MEDS: SimETHICONE 80 MG Chewable Tablet PO (03:14)
[2024-12-29 03:33] LABS: Absolute Lymphocyte Count 2.98 X10^3/uL (0.83-4.51); Absolute Neutrophil Count 5.8 X10^3/uL (2.0-7.7); Basophil# 0.03 X10^3/uL; Basophil% 0.3 % (0-1); Eosinophil# 0.33 X10^3/uL; Eosinophils% 3.3 % (0-5); Hematocrit 25.3 % (37-47); Hemoglobin 8.4 g/dL (12.0-15.0); Lymphocyte # 2.98 X10^3/ul (0.83-4.51); Lymphocyte % 29.9 % (19-41); Mean Corp Hgb Conc 33.2 g/dL (32-36); Mean Corpuscular Hgb 30.3 pg (27.0-32.0); Mean Corpuscular Volume 91.3 fL (81-99); Mean Platelet Vol. 10.5 fl (6.2-12.0); Monocyte# 0.81 X10^3/uL; Monocyte% 8.1 % (0-10); NRBC Flagged by Analyzer 0 % (0-5); Neutrophil # 5.75 X10^3/uL (2.7-7.7); Neutrophil % 57.9 % (47-70); Platelet Count 280 K/mm3 (150-450); RBC Distribution Width CV 13.7 % (11.6-14.6); RBC Distribution Width SD 45.8 fl (35.1-43.9); Red Blood Count 2.77 M/mm3 (4.2-5.4)
[2024-12-29 04:18] LABS: ALB/GLOB Ratio 1.2 RATIO (0.9-2.4); AST(SGOT) 35 U/L (<=31); Alanine Aminotransfer ALT/SGPT 30 U/L (<=34); Alkaline Phosphatase 105 U/L (35-104); Anion Gap 10 (5-15); BUN 14 mg/dL (4-19); BUN/Creat Ratio 20.9 RATIO (10-20); Calcium,Total 8.7 mg/dL (7.6-11.0); Carbon Dioxide 22.9 mmol/L (21.0-32.0); Chloride 106 mmol/L (98-108); Creatinine, Serum 0.65 mg/dL (0.70-1.20); EST Glomerular Filtration Rate 122 (>60); Estimated Creatinine Clearance 143.82 ml/min (50-250); Globulin 2.5 g/dL (2.2-4.2); Glucose 90 mg/dL (70-99); Potassium 4.1 mmol/L (3.3-5.1); Protein, Total 5.5 g/dL (5.9-8.4); Sodium Level 139 mmol/L (133-145); Total Bilirubin 0.18 mg/dL (0.00-1.30)
--- NOTE | 2024-12-29 04:56 | OB.TRI.HP_ITS ---
HPI - General HPI Narrative VALENTE DELGADO, is a 29 F who presents with elevated blood pressures . She was delivered last week for gestational hypertension and then presented this evening with elevated blood pressures and borderline elevated AST. She was monitored overnight and blood pressures decreased to normal range she still has significant edema and AST was essentially stable but just above normal. Maternal Data Information AI Calculator Estimated Delivery Date Method Current WG Current Estimate 01/04/25 LMP (Uncertain) 39w 1d Other Estimates 01/06/25 Ultrasound #1 38w 6d PFSH PFSH Medical History (Updated 12/29/24 @ 04:[address] Narda Reeder MD) depression Depression Anxiety Autoimmune disease Kidney stones Abnormal Pap smear of cervix Seasonal allergies Urinary tract infection Wears glasses Wears contact lenses History of kidney stones Back pain back injections History of back pain Home Medications ?Medication ?Instructions ?Recorded ?Last Taken ?Type cholecalciferol (vitamin D3) 125 10,000 unit PO DAILY vitamin 05/27/24 12/24/24 History mcg (5,000 unit) capsule doxylamine succinate 25 mg tablet 25 mg PO QHS PRN sle ep aid 05/27/24 12/24/24 History (Unisom (doxylamine)) multivit-min no.71-iron fum 28 1 cap PO DAILY pregnanc y 05/27/24 12/24/24 History mg-folate no.1 1 mg-dha 300 mg capsule (PNV-Hudson) vitamin B complex 1 cap PO QDAY methyl folate 05/27/24 12/24/24 History ondansetron 4 mg disintegrating 4 mg PO Q6H PRN nausea and 06/04/24 12/24/24 Rx tablet vomiting #90 tabs oxycodone-acetaminophen 5 mg-325 1 tab PO Q6H PRN PRN Pain 3 days 07/28/24 12/28/24 17:00 Rx mg tablet #12 TABLETS 1 TAB ascorbic acid (vitamin C) 1,000 mg 1 g PO DAILY vitami n 12/25/24 12/24/24 History tablet (C-1000) famotidine 20 mg tablet (Pepcid) 20 mg PO PRN heartbur n 12/25/24 12/25/24 History ibuprofen 800 mg tablet 800 mg PO Q8H PRN pain #30 t abs 12/25/24 12/28/24 15:00 Rx 800 mg magnesium 250 mg tablet 250 mg PO DAILY sleep aid 12/24/24 History oxycodone-acetaminophen 5 mg-325 1 tab PO Q4H PRN pain 7 days #40 12/27/24 Unknown Rx mg tablet (Percocet) tabs labetalol 100 mg tablet 100 mg PO BID #60 tabs 12/29 Unknown Rx Allergy/AdvReac Type Severity Reaction Status Date / Time bupropion (From Wellbutrin) AdvReac Other Verified 12/28/24 20:41 Tetracyclines AdvReac Nausea/Vom/ Verified 12/28/24 20:41 Diarrhea Family History Mother CVA (cerebral vascular accident) Father Psoriasis Heart disease Thyroid disorder hypothyroid Surgical History (Updated 12/26/24 @ 00:02 by Adilia Meyer) History of cystoscopy Hx of section History of wisdom tooth extraction, class II edentulism History of tonsillectomy Social History adopted: No household members: spouse and children number of children: 1 current occupational status: employed current occupation: Corporate Nurse for [employer] current occupational exposures/hazards: No pets and animals: Yes pets and animals: dog(s) history of recent travel: Yes ([place] in February) out of state: Yes out of country: No sexually active: Yes Smoking Status: Never smoker alcohol intake: never substance use type: does not use diet: gluten free well-balanced diet: daily or most days caffeine: No eating out: 1-3 times/week during the past year weight has: remained stable what type of physical activity do you participate in: none rex/jew: Moravian seatbelt use: always do you feel safe at home: Yes additional social history: Gil- Works at [employer]formerly [employer]) History 2 Elective abortions Hx Para 1 Spontaneous abortions Hx # Term Pregnancies Ectopic pregnancies Hx # Pregnancies Multiple births # of living children 1 Past Pregnancies Del. Date Name GA/Weeks Outcome Route Bth Weight Infant Gen Labor Lgth Anesthesia Del Locatn Provider FOB Unknown 11/03/20 Abebe 39 live - full term 7.2 Male epidural Reggiecedric Cordero Delivery Date: Last Updated by: Christina Nickerson CNM IUGR-breech Visit Details Expected Delivery Route/Plan TOLAC patient counseled regarding risks/benefits of trial of labor versus repeat . ACOG/uptodate education given to patient. 62.1 % likelihood of success per calculator TOLAC consent form signed: [] Plans Covid status: [] Flu vaccine: [] Tdap vaccine: given Rhogam: NA LARC form signed: yes Problem list reviewed and updated with the most current plan of care details and appropriate orders placed. Relevant counseling for the gestational age provided. Continue routine care and follow up unless otherwise noted in visit notes/problem list details OB Flowsheet Initial Weight: 183 lb Date -?-?-?-?-?-?-?-?-?-?-?-?- EGA Weight BP Urine Prot -?-?-?-?-?-?-?-?-?-?-?-?- Glucose FHR FuHt Pres Dilation -?-?-?-?-?-?-?-?-?-?-?-?- Effaced St Visit Note 06/04/24 -?-?-?-?-?-?-?-?-?-?-?-?- 9w 3d 183 lb (+0 oz) 123/80 -?-?-?-?-?-?-?-?-?-?-?-?- 180 -?-?-?-?-?-?-?-?-?-?-?-?- KW- CRL cons wit h dates. Declines NIPT. Desires TOLAC- will need records from [place]. A1c and thyroid labs ordered 07/03/24 -?-?-?-?-?-?-?-?-?-?-?-?- 13w 4d 186 lb (+3 lb) 134/80 Negative -?-?-?-?-?-?-?-?-?-?-?-?- Negative 160 -?-?-?-?-?-?--?-?-?-?-?-?- SM- spotting ove r the weekend, no vb now and no cramping discussed TOLAC 07/31/24 -?-?-?-?-?-?-?-?-?-?-?-?- 17w 4d 189 lb 2 oz (+6 lb 2 oz) 124/79 Negative -?-?-?-?-?-?-?-?-?-?-?-?- Negative 155 -?-?-?-?-?-?-?-?-?-?-?-?- KW- no vb/crampi ng. possible fm. doing ok with kidney stones. US scheduled. 08/28/24 -?-?-?-?-?-?-?-?-?-?-?-?- 21w 4d 195 lb (+12 lb) 137/82 Negative -?-?-?-?-?-?-?-?-?-?-?-?- Negative 160 -?-?-?-?-?-?-?-?-?-?-?-?- KW- no vb/lof/ct x. good fm 09/10/24 -?-?-?-?-?-?-?-?-?-?-?-?- 23w 3d 200 lb (+17 lb) 120/69 Negative -?-?-?-?-?-?-?-?-?-?-?-?- Negative 165 23 -?-?-?-?-?-?-?-?-?-?-?-?- KW- work in for pelvic pressure/burning cramping. 10 dip positive for blood/leuks. culture sent and ATB started. 28 week labs discussed. 10/13/24 -?-?-?-?-?-?-?-?-?-?-?-?- 28w 1d 204 lb (+21 lb) 120/70 Negative -?-?-?-?-?-?-?-?-?-?-?-?- Negative 154 28 -?-?-?-?-?-?-?-?-?-?-?-?- MH-No VB, lof. G ood FM. 28 wk labs pending. Tdap and larc done 10/29/24 -?-?-?-?-?-?-?-?-?-?-?-?- 30w 3d 206 lb 2 oz (+23 lb 2 oz) 134/76 Negative -?-?-?-?-?-?-?-?-?-?-?-?- Negative 150 Breech -?-?-?-?-?-?-?-?-?-?-?-?- JV- no lof, vagi nal bleeding, or dec fm. no complaints. breech on bedside scan and anxious. states wanted to . last baby was breech. wants scanned every week for her anxiety. 11/04/24 -?-?-?-?-?-?-?-?-?-?-?-?- 31w 2d 208 lb 4 oz (+25 lb 4 oz) 116/78 Negative -?-?-?-?-?-?-?-?-?-?-?-?- Negative 157 0 -?-?-?-?-?-?-?-?-?-?-?-?- -work in for v aginal irritation/burning X 2 days. No discharge, LOF, VB. Good FM. CHANDLER BV/comp vag culture pending. 11/12/24 -?-?-?-?-?-?-?-?-?-?-?-?- 32w 3d 208 lb (+25 lb) 133/87 Negative -?-?-?-?-?-?-?-?-?-?-?-?- Negative 145 Breech -?-?-?-?--?-?-?-?-?-?-?-?- KW- no vb/lof/ct x. good fm. has a rash under breast x 1 month-does not appear to be yeast. continue to monitor. not bothersome for patient. declines vaginal pain. 11/27/24 -?-?-?-?-?-?-?-?-?-?-?-?- 34w 4d 208 lb 4 oz (+25 lb 4 oz) 118/69 Negative -?-?-?-?-?-?-?-?-?-?-?-?- Negative 160 35 Breech -?-?-?-?-?-?-?-?-?-?-?-?- SM- breech today , extensive discussion about repeat section. worked through discussin issues of previous concern. 12/11/24 -?-?-?-?-?-?-?-?-?-?-?-?- 36w 4d 214 lb 6 oz (+31 lb 6 oz) 135/84 Negative -?-?-?-?-?-?-?-?-?-?-?-?- Negative 159 37 Breech 0 -?-?-?-?-?-?-?-?-?-?-?-?- JV- normal growt h, still breech. no complaints today. gbs collected 12/18/24 -?-?-?-?-?-?-?-?-?-?-?-?- 37w 4d 216 lb 2 oz (+33 lb 2 oz) 134/80 Negative -?-?-?-?-?-?-?-?-?-?-?-?- Negative 140 37 -?-?-?-?-?-?-?-?-?-?-?-?- Sm- no vb lof go od fm nor egular ctx nl growth 12/25/24 -?-?-?-?-?-?-?-?-?-?-?-?- 38w 4d 217 lb 6 oz (+34 lb 6 oz) 141/97 172/92 Negative -?-?-?-?-?-?-?-?-?-?-?-?- Negative 155 Breech -?-?-?-?-?-?-?-?-?-?-?-?- KW- no vb/lof/ct x. good fm. C/S for saturday. no headache/BV. some pitting edema elevated bp in office to for evaluation. Physical Exam Const alert, oriented x3 and no apparent distress HEENT Head and Scalp: normocephalic and atraumatic Eyes EOMs intact bilaterally Neck full ROM and no lymphadenopathy Chest inspection of chest normal Resp normal respiratory effort GI GI Narrative: gravid, abdomen nontender, AGA Neuro no focal motor deficits Motor Exam: clonus absent Assessment & Plan (1) Status post section: COMMENT: sven 12/25/24- JV (2) Gestational hypertension: COMMENT: fu in office saturday for repeat labs and bp. borderline elevaed ast. labetalol ordered to take if bps elevated PLAN: Plan Discharged to home with prescription for labetalol to take if blood pressure greater than 140/90, call if greater than 160/110. Plan follow-up in the office tomorrow for repeat labs and blood pressure check for close follow-up Charges/Coding Multi Select Codes Visit Charges Office Visit/Consults: 39572 OV L3 Est 20min
--- NOTE | 2024-12-29 05:02 | EKG12_ITS ---
Test Reason : CP Blood Pressure : */* mmHG Vent. Rate : 86 BPM Atrial Rate : 86 BPM P-R Int : 174 ms QRS Dur : 82 ms QT Int : 350 ms P-R-T Axes : 33 71 36 degrees QTcB Int : 418 ms Normal sinus rhythm Normal ECG When compared with ECG of 28-Jun-2009 22:06, PREVIOUS ECG IS PRESENT Confirmed by Amos Sims [id number]), purchasing expeditor DANE CHILDS ([id number]) on 12/29/2024 11:33:17 AM Referred By: Christina Nickerson Confirmed By: Amos Sims
[2024-12-29] MEDS: Acetaminophen 325 MG Tablet PO (06:53)
[2024-12-29] MEDS: oxyCODONE 5 MG Tablet PO (06:53)
--- NOTE | 2024-12-29 07:26 | NURSING ---
late entry due to unit acuity. 0530 dr roa on pt nursing unit to see pt and discuss plan of care with RN. SM reviewed hourly BPs, labs, EKG results, etc and states to discharge pt home with prescription for labetalol with parameters (take if manual BP at home >140/90), instructions to come to hospital if BP >160/110, and follow up in office on saturday. no further needs noted. discharge order to be placed.
== END 2024-12-29 07:29 | disposition home or self-care (01) ==
LOC: WPOUT 19:45 → WP 19:45
PROVIDERS: Obstetrics & Gynecology; PCP Family Medicine; Referring Provider Advanced Practice Midwife; Visit Provider Advanced Practice Midwife
DX: O13.5 Gestational [pregnancy-induced] hypertension without significant proteinuria, complicating the puerperium (principal)
CPT/HCPCS: 36415; 80053; 82565; 84450; 84460; 84550; 85025; 85027; 93005; 99221; G0378

== ENCOUNTER → 2024-12-30 | Outpatient (CLI) | payer BC, SELFPAY ==
[2024-12-30 11:54] LABS: Absolute Neutrophil Count 7.5 X10^3/uL (2.0-7.7); Basophil# 0.03 X10^3/uL; Basophil% 0.3 % (0-1); Eosinophil# 0.32 X10^3/uL; Eosinophils% 2.8 % (0-5); Hematocrit 26.4 % (37-47); Hemoglobin 8.5 g/dL (12.0-15.0); Lymphocyte % 22.9 % (19-41); Mean Corp Hgb Conc 32.2 g/dL (32-36); Mean Corpuscular Hgb 29.6 pg (27.0-32.0); Mean Platelet Vol. 10.9 fl (6.2-12.0); Monocyte# 0.84 X10^3/uL; Monocyte% 7.4 % (0-10); NRBC Flagged by Analyzer 0 % (0-5); Neutrophil # 7.49 X10^3/uL (2.7-7.7); Neutrophil % 65.9 % (47-70); Platelet Count 345 K/mm3 (150-450); RBC Distribution Width CV 13.8 % (11.6-14.6); RBC Distribution Width SD 46.8 fl (35.1-43.9); Red Blood Count 2.87 M/mm3 (4.2-5.4); White Blood Count 11.4 K/mm3 (4.4-11.0)
[2024-12-30 12:22] LABS: ALB/GLOB Ratio 1.1 RATIO (0.9-2.4); AST(SGOT) 35 U/L (<=31); Alanine Aminotransfer ALT/SGPT 43 U/L (<=34); Albumin, Serum 3.3 g/dL (3.5-5.0); Alkaline Phosphatase 115 U/L (35-104); Anion Gap 12 (5-15); BUN 14 mg/dL (4-19); BUN/Creat Ratio 20.5 RATIO (10-20); Carbon Dioxide 23.9 mmol/L (21.0-32.0); Chloride 104 mmol/L (98-108); EST Glomerular Filtration Rate 119 (>60); Globulin 2.9 g/dL (2.2-4.2); Glucose 108 mg/dL (70-99); Potassium 4.2 mmol/L (3.3-5.1); Protein, Total 6.1 g/dL (5.9-8.4); Sodium Level 140 mmol/L (133-145); Total Bilirubin 0.27 mg/dL (0.00-1.30)
== END | disposition home or self-care (01) ==
PROVIDERS: Obstetrics & Gynecology; PCP Family Medicine; Referring Provider Advanced Practice Midwife; Visit Provider Advanced Practice Midwife
DX: O13.9 Gestational [pregnancy-induced] hypertension without significant proteinuria, unspecified trimester (principal); Z98.891 History of uterine scar from previous surgery; Z3A.00 Weeks of gestation of pregnancy not specified
CPT/HCPCS: 36415; 80053; 85025

== ENCOUNTER → 2025-01-05 | Outpatient (CLI) | payer BC, SELFPAY ==
[2025-01-05 17:02] LABS: Absolute Lymphocyte Count 2.96 X10^3/uL (0.83-4.51); Absolute Neutrophil Count 6.5 X10^3/uL (2.0-7.7); Basophil# 0.03 X10^3/uL; Basophil% 0.3 % (0-1); Eosinophil# 0.32 X10^3/uL; Hematocrit 30.1 % (37-47); Hemoglobin 9.7 g/dL (12.0-15.0); Lymphocyte # 2.96 X10^3/ul (0.83-4.51); Lymphocyte % 27.8 % (19-41); Mean Corp Hgb Conc 32.2 g/dL (32-36); Mean Corpuscular Hgb 29.6 pg (27.0-32.0); Mean Corpuscular Volume 91.8 fL (81-99); Mean Platelet Vol. 10.1 fl (6.2-12.0); Monocyte# 0.83 X10^3/uL; Monocyte% 7.8 % (0-10); NRBC Flagged by Analyzer 0 % (0-5); Neutrophil # 6.45 X10^3/uL (2.7-7.7); Neutrophil % 60.6 % (47-70); Platelet Count 536 K/mm3 (150-450); RBC Distribution Width CV 13.4 % (11.6-14.6); RBC Distribution Width SD 45.1 fl (35.1-43.9); Red Blood Count 3.28 M/mm3 (4.2-5.4); White Blood Count 10.6 K/mm3 (4.4-11.0)
[2025-01-05 17:40] LABS: ALB/GLOB Ratio 1.3 RATIO (0.9-2.4); AST(SGOT) 23 U/L (<=31); Alanine Aminotransfer ALT/SGPT 28 U/L (<=34); Albumin, Serum 3.8 g/dL (3.5-5.0); Alkaline Phosphatase 130 U/L (35-104); Anion Gap 13 (5-15); BUN 13 mg/dL (4-19); BUN/Creat Ratio 15.6 RATIO (10-20); Carbon Dioxide 22.5 mmol/L (21.0-32.0); Chloride 103 mmol/L (98-108); Creatinine, Serum 0.82 mg/dL (0.70-1.20); EST Glomerular Filtration Rate 100 (>60); Glucose 89 mg/dL (70-99); Potassium 4.4 mmol/L (3.3-5.1); Protein, Total 6.7 g/dL (5.9-8.4); Sodium Level 138 mmol/L (133-145); Total Bilirubin 0.35 mg/dL (0.00-1.30)
== END | disposition home or self-care (01) ==
LOC: BWCLAB 15:11
PROVIDERS: PCP Family Medicine; Referring Provider Obstetrics & Gynecology; Visit Provider Obstetrics & Gynecology
DX: R74.8 Abnormal levels of other serum enzymes (principal)
CPT/HCPCS: 36415; 80053; 85025

== ENCOUNTER → 2025-02-15 | Outpatient (CLI) | payer BC, SELFPAY ==
--- NOTE | 2025-02-15 19:00 | CT_ITS ---
PROCEDURE: ABDOMEN/PELVIS WITHOUT CONT 02/15/2025 REASON FOR EXAM: KIDNEY STONES TECHNIQUE: Abdomen and pelvis CT without intravenous contrast. Noncontrast technique limits evaluation of the abdominal and pelvic viscera. Coronal and Sagittal reconstruction series were provided. One or more dose reduction techniques were used (e.g., Automated exposure control, adjustment of the mA and/or kV according to patient size, use of iterative reconstruction technique). PATIENT PREPARATION: Per protocol CTDIvol: 12.9 mGy DLP: 636 mGy-cm COMPARISON: CT abdomen and pelvis on 03/08/2021 FINDINGS: Lung bases: Unremarkable Liver: Normal size. No obvious mass. Gallbladder: Partially distended, and unremarkable Spleen: Unremarkable Pancreas: Normal size. No surrounding inflammation. Adrenals: Unremarkable Kidneys: Tiny 2 mm nonobstructing stone at the interpolar region of the right kidney, unchanged. No hydronephrosis or hydroureter on either side. Bladder: Unremarkable Reproductive Organs: Dominant follicle in the left ovary Bowel: No obstruction or inflammation. Normal caliber appendix. Lymph nodes: Unremarkable Vasculature: Unremarkable Bones: Unremarkable CT/Abdomen/Pelvis without Cont IMPRESSION: Tiny nonobstructing 2 mm stone at the interpolar region of the right kidney, un changed from CT in 2020. No hydronephrosis or hydroureter on either side. Reading Location: [id number]
== END | disposition home or self-care (01) ==
LOC: CT 18:59
PROVIDERS: PCP Family Medicine; Visit Provider Urology
DX: N20.1 Calculus of ureter (principal)
CPT/HCPCS: 74176